=== PATIENT | male | born 1950 | race Caucasian/White ===

== ENCOUNTER 2020-10-05 07:43 | Outpatient (REF) | payer MEDICARE, SELFPAY ==
[2020-10-05 10:19] LABS: MANUAL DIFF FLAG NO
[2020-10-05 10:23] LABS: Basophils Absolute Auto 0.1 X10*3/uL (0.0-0.2); Basophils Percent Auto 1.1 % (0-2); Eosinophils Absolute Auto 0.2 X10*3/uL (0.0-0.4); Eosinophils Percent Auto 3.4 % (0-4); Hematocrit 42.7 % (42-52); Hemoglobin 14.4 g/dl (14.0-18.0); Imm Gran Abs Auto 0.01 X10*3/uL (0.00-0.03); Imm Gran Pct Auto 0.1 % (0.0-0.4); Lymphocytes Absolute Auto 2.6 X10*3/uL (1.2-4.9); Lymphocytes Percent Auto 37.2 % (20-40); Mean Corpuscular HGB Conc 33.7 g/dl (31.0-36.0); Mean Corpuscular Hemoglobin 30.2 pg (27.0-33.0); Mean Corpuscular Volume 89.5 fL (80-98); Monocytes Absolute Auto 0.8 X10*3/uL (0.1-1.2); Monocytes Percent Auto 11.6 % (2-11); Neutrophils Absolute Auto 3.2 X10*3/uL (2.0-8.3); Neutrophils Percent Auto 46.6 % (45-73); Platelet Count 282 X10*3/uL (160-400); Red Blood Count 4.77 X10*6/uL (4.60-5.80)
[2020-10-05 10:50] LABS: Alanine Aminotransferase 15 U/L (0-40); Albumin Level 3.8 g/dL (3.5-5.0); Alkaline Phosphatase 60 U/L (39-117); Amylase 56 U/L (28-100); Anion Gap 11 (12-20); Aspartate Amino Transferase 16 U/L (5-37); Bilirubin Total 0.5 mg/dL (0.0-1.0); Blood Urea Nitrogen 18 mg/dL (9-16); Calcium 8.8 mg/dL (8.4-10.2); Carbon Dioxide 31 mmol/L (22-29); Chloride 103 mmol/L (96-108); Estimated Glomerular Filt Rate > 60; Glucose Random 86 mg/dL (60-115); Lipase 16 U/L (8-78); Potassium 4.2 mmol/l (3.3-5.1); Sodium 141 mmol/L (135-145); Total Protein 6.8 g/dL (6.5-8.0)
[2020-10-05 11:12] LABS: TSH reflex Free T4 2.83 mIU/mL (0.32-4.0)
[2020-10-06 18:41] LABS: Immunoglobulin A 157 mg/dL (70-320)
[2020-10-07 23:47] LABS: Transglutaminase Ab IgG 1 U/mL; Transglutaminase IgA 1 U/mL
[2020-10-08 16:12] LABS: Gliadin Deamidated IgA Ab 2 Units; Gliadin Deamidated IgG Ab 2 Units
[2020-10-16 19:03] LABS: Endomysial IgA Antibody Negative (Negative)
== END 2020-10-05 07:44 | disposition home or self-care (01) ==
LOC: HO.10HDL 07:43
PROVIDERS: Visit Provider Internal Medicine
DX: R19.4 Change in bowel habit (principal); R14.3 Flatulence; R14.0 Abdominal distension (gaseous)
CPT/HCPCS: 36415; 80053; 82150; 82784; 83516; 83690; 84443; 85025; 86255; 86256

== ENCOUNTER 2020-10-30 12:38 | Outpatient (REF) | payer MEDICARE, SELFPAY ==
[2020-10-30 14:00] LABS: Blood Urea Nitrogen 18 mg/dL (9-16); Estimated Glomerular Filt Rate > 60
== END 2020-10-30 12:39 | disposition home or self-care (01) ==
LOC: HO.10HDL 12:38
PROVIDERS: Visit Provider Internal Medicine
DX: R19.4 Change in bowel habit (principal); R14.0 Abdominal distension (gaseous); R10.32 Left lower quadrant pain
CPT/HCPCS: 36415; 82565; 84520

== ENCOUNTER 2020-10-31 21:00 | Outpatient (REF) | payer MEDICARE, SELFPAY | END 2020-10-31 21:01 | disposition home or self-care (01) | LOC: HO.10HDL 21:00 | PROVIDERS: Visit Provider Internal Medicine | DX: R19.4 Change in bowel habit (principal); R14.0 Abdominal distension (gaseous); R10.32 Left lower quadrant pain | CPT/HCPCS: 36415; 87177; 87209; 87329 ==

== ENCOUNTER 2020-11-01 09:36 | Outpatient (REF) | payer MEDICARE, SELFPAY | END 2020-11-01 09:37 | disposition home or self-care (01) | LOC: HO.10HDL 09:36 | PROVIDERS: Visit Provider Internal Medicine | DX: Z13.89 Encounter for screening for other disorder (principal) ==

== ENCOUNTER 2020-11-08 10:08 | Outpatient (REF) | payer MEDICARE, SELFPAY ==
--- NOTE | ~2020-11-08 | CT_ITS ---
EXAMINATION: CT ABDOMEN AND PELVIS WITH CONTRAST CLINICAL INFORMATION: Abdominal pain, change in bowel habits. COMPARISON: 06/08/2013 CT scan of the pelvis, 05/17/2015 abdominal ultrasound. TECHNIQUE: Multidetector volumetric images were obtained from the superior aspect of the liver through the pubic symphysis following administration 85 mL of Omnipaque 350 intravenous contrast. Sagittal and coronal reformatted images were obtained on the technologist's workstation. Oral contrast: No This CT examination was performed using dose optimization techniques as appropriate, variously including the following: *Automated exposure control *Adjustment of mA and/or kV according to patient size (this includes techniques or standardized protocols for targeted exams where dose is matched to indication/reason for exam; i.e. extremities or head) *Use of iterative reconstruction technique DLP: 577 mGy-cm FINDINGS: LUNG BASES: The visualized lung bases are unremarkable. LIVER, GALLBLADDER, AND BILIARY TREE: Visualized portions unremarkable. PANCREAS: Unremarkable. SPLEEN: Unremarkable. ADRENAL GLANDS: Unremarkable. KIDNEYS AND URETERS: The kidneys are normal in size, shape, and attenuation. No hydronephrosis, hydroureter, or calculi seen. No perinephric stranding. BLADDER: Unremarkable. GASTROINTESTINAL TRACT: The stomach, small bowel and appendix are unremarkable. Mild diverticulosis is seen in the sigmoid colon without surrounding abnormality. ABDOMINAL WALL: Small fat-containing right inguinal hernia. LYMPH NODES: No lymphadenopathy. VASCULAR: Unremarkable. PELVIC VISCERA: Unremarkable. OSSEOUS STRUCTURES: Mild degenerative disc disease is seen in the visualized inferior thoracic spine. No suspicious abnormality. CT/CT abdomen pelvis w con IMPRESSION: 1. No acute intra-abdominal/pelvic abnormality. 2. Mild sigmoid diverticulosis without evidence for acute diverticulitis. 3. Small fat-containing right inguinal hernia without abnormality or significant change.
[2020-11-08] MEDS: iohexoL 350 MG/ML 100 ML INFUS..BTL IV (10:47)
== END 2020-11-08 10:09 | disposition home or self-care (01) ==
LOC: HO.CT 10:08
PROVIDERS: Visit Provider Internal Medicine
DX: R10.32 Left lower quadrant pain (principal); R19.4 Change in bowel habit
CPT/HCPCS: 74177; Q9967

== ENCOUNTER 2020-11-28 06:32 | Day surgery (SDC) | payer MEDICARE, SELFPAY ==
[2020-11-23 10:30] VITALS: BMI 31.5
--- NOTE | 2020-11-27 08:23 | HO.ANESPROP2 ---
Documented by User: Loretta Soria 11/27/20 08:23 HPI - Anesthesia Eval Consult details Narrative: 70yo M for Colonoscopy PMFSH Past Medical History Medical History Arthritis Elevated cholesterol GERD (gastroesophageal reflux disease) History of prostate cancer Surgical History Surgical History H/O colonoscopy History of esophagogastroduodenoscopy (EGD) Hx of left inguinal hernia repair Hx of radical prostatectomy Social History Social History Are you a primary laboratory animal care veterinarian to a significant other at home: No Do you presently have visiting nurse or other home services: No Smoking Status: Never smoker Use of substances other than those prescribed or required for medical reasons: No Have you been hit, kicked, punched, or otherwise hurt by someone within the past year? If so, by whom?: No Advance Directives Information Provided: No Recently lost weight without trying: No Meds Allergies Allergy/AdvReac Type Severity Reaction Status Date / Time prednisone [Prednisone] Allergy Mild HIVES Verified 11/23/20 10:34 Home Medications Medication Instructions Recorded Confirmed Last Taken Type albuterol sulfate 2 puff INHALATION QID PRN 11/23/20 11/23/20 11/21/20 History aspirin [Aspirin Low Dose] 81 mg PO DAILY 11/23/20 11/28/20 11/21/20 History pantoprazole 1 tab PO DAILY 11/23/20 11/28/20 11/28/20 05:30 History simvastatin 1 tab PO DAILY 11/23/20 11/23/20 Unknown History zolpidem 1 tab PO BEDTIME 11/23/20 11/23/20 Unknown History Exam Exam Date and Time: November 27, 2020 0823 Height,Weight and Vital Signs: Height 5 ft 10 in Weight 99.79 kg Assessment and Plan Assessment Anesthesia Assessment: Chart Reviewed Documented by User: Heaven Corrigan 11/28/20 07:27 [facility] Past Medical History Medical History Arthritis Elevated cholesterol GERD (gastroesophageal reflux disease) History of prostate cancer Surgical History Surgical History H/O colonoscopy History of esophagogastroduodenoscopy (EGD) Hx of left inguinal hernia repair Hx of radical prostatectomy Social History Social History Are you a primary laboratory animal care veterinarian to a significant other at home: No Do you presently have visiting nurse or other home services: No Smoking Status: Never smoker Use of substances other than those prescribed or required for medical reasons: No Have you been hit, kicked, punched, or otherwise hurt by someone within the past year? If so, by whom?: No Advance Directives Information Provided: No Recently lost weight without trying: No Meds Allergies Allergy/AdvReac Type Severity Reaction Status Date / Time prednisone [Prednisone] Allergy Mild HIVES Verified 11/23/20 10:34 Home Medications Medication Instructions Recorded Confirmed Last Taken Type albuterol sulfate 2 puff INHALATION QID PRN 11/23/20 11/23/20 11/21/20 History aspirin [Aspirin Low Dose] 81 mg PO DAILY 11/23/20 11/28/20 11/21/20 History pantoprazole 1 tab PO DAILY 11/23/20 11/28/20 11/28/20 05:30 History simvastatin 1 tab PO DAILY 11/23/20 11/23/20 Unknown History zolpidem 1 tab PO BEDTIME 11/23/20 11/23/20 Unknown History Exam Airway Mallampati Class: III TM Dist: >3cm Neck ROM: Full Loose/Missing/Broken Teeth: No Heart: RRR Lungs: CTA Assessment and Plan Assessment Anesthesia Assessment: Anesthesia Plan Discussed and Chart Reviewed Final Anesthetic Review NPO: Yes ASA Class: II Final Preanesthetic Review: Meds/Allgs Chart Reviewed, Consent Obtained/Reviewed and Anes Risks/Benef Reviewed Patient Risk: Low Procedure Risk: Low Anesthetic Plan Anesthetic Plan: MAC:
[2020-11-28 06:56] VITALS: BP 137/90; PULSE 78; RESP 16; TEMP 36.2; O2SAT 99
[2020-11-28] MEDS: Lactated Ringers 1,000 ML 100 ML IVCONT (07:00)
[2020-11-28 08:31] VITALS: BP 139/82; PULSE 63; RESP 16; TEMP 36.2; O2SAT 98
--- NOTE | 2020-11-28 08:37 | PM.OP ---
Brief Operative Note Date of Service: 11/28/20 Pre-op diagnosis: Screening, Change in bowel habits Post-op diagnosis: other (R/O microscopic colitis, Diverticulosis) Procedure: Colonoscopy to the cecum with biopsies Surgeon: Imtiaz Lucas Anesthesia: MAC Estimated blood loss (mL): 3.0 Pathology: other (A. Ascending colon B. Descending colon) Condition: stable Disposition: PACU
[2020-11-28 08:46] VITALS: BP 131/87; PULSE 62; RESP 17; TEMP 36.2; O2SAT 99
--- NOTE | 2020-11-28 09:21 | OP_ITS ---
SURGEON: Imtiaz Lucas MD INDICATIONS: The patient presents for evaluation of colorectal cancer screening, personal history of a malignant colon polyp, and change in bowel habits. Full consent has haven obtained from him for this, including risks of bleeding and perforation. PREOPERATIVE DIAGNOSIS: POSTOPERATIVE DIAGNOSIS: PROCEDURE PERFORMED: Colonoscopy to the cecum with biopsies. ESTIMATED BLOOD LOSS: COMPLICATIONS: ANESTHESIA: Monitored anesthesia care. ASSISTANTS: SPECIMENS: PREOPERATIVE DIAGNOSES: Colorectal cancer screening, personal history of malignant colon polyp, and change in bowel habits. POSTOPERATIVE DIAGNOSES: Colorectal cancer screening, personal history of malignant colon polyp, change in bowel habits, diverticulosis, rule out microscopic colitis, and internal hemorrhoids. DESCRIPTION OF PROCEDURE: The patient was placed in the left lateral decubitus position. The digital rectal exam revealed no abnormalities. The Olympus video pediatric colonoscope was entered into the rectum and advanced easily to the cecum with the assistance of abdominal wall pressure. Once in the cecum, I did identify normal-appearing cecal pouch with appendiceal orifice and a normal-appearing ileocecal valve. There was transillumination of light deep in the right lower quadrant. The entire cecum was well visualized and appeared normal. The scope was then slowly withdrawn assessing all mucosal surfaces carefully. Preparation was excellent. I did not visualize any sign of polyps, colitis, nor angiodysplasia. Random biopsies were obtained in the ascending and descending colon to rule out microscopic colitis. There was a [id number] amount of sigmoid diverticulosis. In the rectum, scope was retroflexed visualizing internal hemorrhoids, but no other pathology. The rectal mucosa appeared normal. The scope was straightened out and withdrawn from the patient. He has tolerated the procedure well and was returned to the recovery area in stable condition. IMPRESSION: 1. Diverticulosis. 2. Internal hemorrhoids. 3. Rule out microscopic colitis. PLAN: The results of biopsy will be checked. I would recommend a repeat colonoscopy in 5 years for further screening and surveillance. He will see me in 2 to 3 months for followup. He has been tried on fiber supplement and antispasmodics as well as a lactose-free diet, in regard to the change in his bowel habits. We shall reassess this when I see him in followup. The recent CAT scan was also nonrevealing. This has been discussed with his . MD PRISCILA Camilo/JAMES / [id number]
== END 2020-11-28 09:10 | disposition home or self-care (01) ==
PROVIDERS: PCP Internal Medicine; Visit Provider Internal Medicine
PROC: 0DJD8ZZ Inspection of Lower Intestinal Tract, Via Natural or Artificial Opening Endoscopic (ICD-10-PCS; CPT 45378; principal; 2020-11-28 07:30)
DX: R10.32 Left lower quadrant pain (principal); R19.4 Change in bowel habit; R14.0 Abdominal distension (gaseous); Z86.010 Personal history of colon polyps; Z85.038 Personal history of other malignant neoplasm of large intestine; K57.30 Diverticulosis of large intestine without perforation or abscess without bleeding; K64.8 Other hemorrhoids; K21.9 Gastro-esophageal reflux disease without esophagitis; Z85.46 Personal history of malignant neoplasm of prostate; Z79.899 Other long term (current) drug therapy; Z88.8 Allergy status to other drugs, medicaments and biological substances
CPT/HCPCS: 45380; 88305

== ENCOUNTER 2021-04-29 07:27 | Outpatient (REF) | payer MEDICARE, SELFPAY ==
[2021-04-29 10:24] LABS: MANUAL DIFF FLAG NO
[2021-04-29 10:32] LABS: Basophils Absolute Auto 0.1 X10*3/uL (0.0-0.2); Basophils Percent Auto 0.8 % (0-2); Eosinophils Absolute Auto 0.3 X10*3/uL (0.0-0.4); Eosinophils Percent Auto 4.2 % (0-4); Hemoglobin 14.6 g/dl (14.0-18.0); Imm Gran Abs Auto 0.01 X10*3/uL (0.00-0.03); Imm Gran Pct Auto 0.2 % (0.0-0.4); Lymphocytes Absolute Auto 2.4 X10*3/uL (1.2-4.9); Lymphocytes Percent Auto 36.2 % (20-40); Mean Corpuscular Hemoglobin 30.4 pg (27.0-33.0); Mean Corpuscular Volume 89.6 fL (80-98); Mean Platelet Volume 10.9 fL (9.4-12.4); Monocytes Absolute Auto 0.8 X10*3/uL (0.1-1.2); Monocytes Percent Auto 12.2 % (2-11); Neutrophils Absolute Auto 3.1 X10*3/uL (2.0-8.3); Neutrophils Percent Auto 46.4 % (45-73); Platelet Count 285 X10*3/uL (160-400); Red Cell Distribution Width 12.6 % (11.0-16.0); White Blood Count 6.6 X10*3/uL (4.8-10.8)
[2021-04-29 11:19] LABS: Alanine Aminotransferase 18 U/L (0-40); Alkaline Phosphatase 60 U/L (39-117); Anion Gap 10 (12-20); Aspartate Amino Transferase 22 U/L (5-37); Bilirubin Total 0.4 mg/dL (0.0-1.0); Blood Urea Nitrogen 17 mg/dL (9-16); Carbon Dioxide 29 mmol/L (22-29); Chloride 106 mmol/L (96-108); Cholesterol 159 mg/dL; Estimated Glomerular Filt Rate > 60; Glucose Fasting 100 mg/dL (60-99); HDL Cholesterol 51 mg/dL; LDL Cholesterol Calculated 95 mg/dl; Potassium 4.1 mmol/L (3.3-5.1); Sodium 141 mmol/L (135-145); Total Protein 6.9 g/dL (6.5-8.0); Triglycerides 67 mg/dL
[2021-04-29 11:41] LABS: Prostate Specific Antigen < 0.05 ng/mL (<0.05-4.0)
== END 2021-04-29 07:28 | disposition home or self-care (01) ==
LOC: HO.WFDLDS 07:27
PROVIDERS: Visit Provider Internal Medicine
DX: Z12.5 Encounter for screening for malignant neoplasm of prostate (principal); E78.00 Pure hypercholesterolemia, unspecified; R35.1 Nocturia; R00.2 Palpitations
CPT/HCPCS: 36415; 80053; 80061; 84153; 84439; 85025

== ENCOUNTER → 2021-05-08 13:25 | Outpatient (REF) | payer MEDICARE, SELFPAY ==
--- NOTE | 2021-05-08 13:31 | ECG_ITS ---
Hook-up date: 2021-05-08 13:37:00 Duration: 42:17:00 Test Indications: PALPITATIONS Medications: [id number] QRS complexes 1 Ventricular ectopics which represent <1 % of total QRS comp. 80 Supraventricular ectopics which represent <1 % of total QRS comp. * Paced QRS complexs which represent % of total QRS comp. VENTRICULAR ECTOPY 1 Isolated 0 Bigeminal Cycles 0 Couplets 0 Runs 0 Beats in Runs * Beats LONGEST at * BPM at :: -- * Beats FASTEST at * BPM at :: -- SUPRAVENTRICULAR ECTOPY 50 Isolated 1 Couplets 5 Runs 28 Beats in Runs 10 Beats LONGEST at 136 BPM at 19:59:35 2021-05-08 3 Beats FASTEST at 164 BPM at 19:16:57 2021-05-08 HEART RATES 52 MIN at 00:36:28 2021-05-09 70 AVG 128 MAX at 15:05:08 2021-05-08 LONGEST RR 1.2240 secs at 01:40:16 2021-05-09 S-T LEVELS Channel 1 - 128 mm at 13:37:00 2021-05-08 - 128 mm at 13:37:00 2021-05-08 Channel 2 - 128 mm at 13:37:00 2021-05-08 - 128 mm at 13:37:00 2021-05-08 Channel 3 - 128 mm at 03:25:61 -- - 128 mm at 03:25:61 Basic rhythm Normal sinus rhythm Baseline BBB No long pause or profound bradycardia Rare Premature atrial complexes One 10 beat run of SVE c/w PAT at 136 bpm Patient reported symptoms of palpitations correlated with NSR Referred By: Jose Craven Overread By: FARHAN HAQ MD
== END ==
LOC: HO.CARD 13:25
PROVIDERS: PCP Internal Medicine; Visit Provider Internal Medicine
DX: I45.10 Unspecified right bundle-branch block (principal); R00.2 Palpitations
CPT/HCPCS: 93225; 93226

== ENCOUNTER → 2021-06-06 10:24 | Outpatient (REF) | payer MEDICARE, SELFPAY ==
--- NOTE | 2021-06-06 10:28 | CA_ITS ---
Transthoracic Echocardiogram Patient (Last, First, Middle): Pernell Arriaga J Gender: Male Date of : 1950 Age: 70 Procedure Date: 06/06/2021 Procedure Type: Transthoracic Echocardiogram Location: OP Height: 177.8 cm Weight: 96.16 kg BSA: 2.14 m2 Heart Rate: bpm BP: 125 / 80 mmHg Black Leather Trimmer: YR/NAM Referring MD: Jose Craven MD Manager Investment Banking: Bayron Garcias MD Symptoms: UNSPECIFIED RIGHT BBB,PALPITATIONS, Study Quality: Fair ECG Rhythm: Sinus Conclusions: - 1. Normal LV systolic function with impaired relaxation filling pattern 2. Mild calcification of aortic valve, normal cardiac valvular Doppler is 3. No gross pericardial effusion Findings Left Ventricle Normal left ventricular size, thickness, and systolic function. The visually estimated ejection fraction is between 60-65%. Regional wall motion abnormalities can not be excluded due to suboptimal endocardial definition. Spectral Doppler is indicative of an impaired relaxation filling pattern. Right Ventricle Normal right ventricular cavity size and systolic function. Atria The left atrium is likely dilated. There is no evidence of interatrial shunt. The right atrium is normal in size. Aortic Valve There is mild calcification of the aortic valve. There is no aortic valve stenosis. There is no aortic valve regurgitation. Mitral Valve There is mild anterior mitral leaflet thickening. There is trace mitral valve regurgitation. There is no mitral valve stenosis. Pulmonic Valve The pulmonic valve was not well visualized. Tricuspid Valve Likely normal tricuspid valve structure and function. Tricuspid regurgitation envelope is inadequate for calculation of right ventricular systolic pressure. Great Vessels All visible segments of the aorta are normal in size. The pulmonary artery was not well visualized. Small plaque is seen in the sino tubular ridge. Venous The inferior vena cava is normal in size and collapses greater than 50% with inspiration. Pericardium/Pleural There is no evidence of pericardial effusion. Prior Study Comparison No previous study in the last 5 years for comparison Measurements 2D Linear Measurements IVSd: 0.92 0.6-0.9/0.6-1.0 cm LVIDd: 4.32 3.9-5.3/4.2-5.9 cm LVIDd Index: 2.02 2.4-3.2/2.2-3.1 cm/m2 LVIDs: 2.73 2.0-3.6 cm LVPWd: 0.98 0.7-1.1 cm Ao Root: 3.80 2.1-3.5 cm LA Diam: 3.80 2.7-3.8/3.0-4.0 cm LAIDs Index: 1.78 1.5-2.3 cm/m2 LV Mass: 166.42 67-162/88-224 g LV Mass Index: 77.77 43-95/49-115 g/m2 LVOT Diam: 2.20 3.0+(-)1.3 cm 2D Systolic Function EF 4C: 58.50 >55% EF 2C: 58.50 >55% EF BiP: 58.50 >55% Mitral Valve MV Pk E: 0.85 MV PK A: 0.78 MV Decel Time: 176.00 E/A: 1.10 E'Lateral: 8.05 E'Medial: 8.27 E/E' Med: 10.30 E/E' Lat: 10.50 PHT: 52.00 MVA PHT: 4.23 Decel [place]: 4.82 Aortic Valve AoV Pk Maikol: 1.55 AoV Mn Maikol: 1.12 AoV VTI: 0.33 AoV Pk Grad: 10.00 Aov Mn Grad: 6.00 GEOVANNA Cont.VTI: 3.21 LVOT LVOT Pk Maikol: 1.15 LVOT Mn Maikol: 0.79 LVOT VTI: 0.28 LVOT Pk Grad: 5.00 LVOT Mn Grad: 3.00 LVOT Diam: 2.20 LVOT Area: 3.80 Diastolic Function MV Pk E: 0.85 MV Pk A: 0.78 E/A: 1.10 E'Medial: 8.27 E/E' Med: 10.30 E' Laterial: 8.05 E/E' Lat: 10.50 Right Ventricle TAPSE (mm): 2.90 TVS' Maikol: 10.00 Great Vessels Aorta Ao Root-2D: 3.80 2.0-3.7 cm Ao Asc: 3.00 2.1-3.4 cm Ao Arch: 2.90 Updated in Other Vendor System with Status of Final Bayron Garcias MD electronically signed on 06/06/2021 12:39:47 PM with status of Final
== END ==
LOC: HO.CARD 10:24
PROVIDERS: PCP Internal Medicine; Visit Provider Internal Medicine
DX: I45.10 Unspecified right bundle-branch block (principal); R00.2 Palpitations
CPT/HCPCS: 93306

== ENCOUNTER 2022-04-22 08:56 | Outpatient (REF) | payer MEDICARE, SELFPAY ==
[2022-04-22 11:11] LABS: MANUAL DIFF FLAG NO
[2022-04-22 11:45] LABS: Basophils Absolute Auto 0.1 X10*3/uL (0.0-0.2); Eosinophils Absolute Auto 0.2 X10*3/uL (0.0-0.4); Eosinophils Percent Auto 4.2 % (0-4); Hematocrit 42.4 % (42.0-52.0); Hemoglobin 14.3 g/dl (14.0-18.0); Imm Gran Abs Auto 0.02 X10*3/uL (0.00-0.03); Imm Gran Pct Auto 0.3 % (0.0-0.4); Lymphocytes Absolute Auto 1.7 X10*3/uL (1.2-4.9); Lymphocytes Percent Auto 29.5 % (20-40); Mean Corpuscular HGB Conc 33.7 g/dl (31.0-36.0); Mean Corpuscular Hemoglobin 29.9 pg (27.0-33.0); Mean Corpuscular Volume 88.7 fL (80.0-98.0); Monocytes Absolute Auto 0.7 X10*3/uL (0.1-1.2); Monocytes Percent Auto 11.4 % (2-11); Neutrophils Absolute Auto 3.1 x10*3/uL (2.0-8.3); Neutrophils Percent Auto 53.6 % (45-73); Platelet Count 267 X10*3/uL (160-400); Red Blood Count 4.78 X10*6/uL (4.60-5.80); Red Cell Distribution Width 12.2 % (11.0-16.0); White Blood Count 5.7 X10*3/uL (4.8-10.8)
[2022-04-22 12:00] LABS: Free T4 (Free Thyroxine) 0.93 ng/dL (0.71-1.85); Thyroid Stimulating Hormone 2.36 uIU/mL (0.32-4.0)
[2022-04-22 12:02] LABS: Alanine Aminotransferase 19 U/L (0-40); Albumin Level 3.9 g/dL (3.5-5.0); Alkaline Phosphatase 60 U/L (39-117); Anion Gap 12 (12-20); Aspartate Amino Transferase 22 U/L (5-37); Bilirubin Total 0.8 mg/dL (0.0-1.0); Blood Urea Nitrogen 17 mg/dL (9-16); Calcium 8.8 mg/dL (8.4-10.2); Carbon Dioxide 27 mmol/L (22-29); Chloride 105 mmol/L (96-108); Cholesterol 170 mg/dL; Estimated Glomerular Filt Rate > 60; Glucose Fasting 95 mg/dL (60-99); HDL Cholesterol 53 mg/dL; LDL Cholesterol Calculated 102 mg/dl; Magnesium 2.2 mg/dL (1.6-2.6); Sodium 140 mmol/L (135-145); Total Protein 6.9 g/dL (6.5-8.0); Triglycerides 75 mg/dL
== END 2022-04-22 08:57 | disposition home or self-care (01) ==
LOC: HO.WFDLDS 08:56
PROVIDERS: Visit Provider Internal Medicine
DX: R00.2 Palpitations (principal); K21.9 Gastro-esophageal reflux disease without esophagitis; E78.00 Pure hypercholesterolemia, unspecified
CPT/HCPCS: 36415; 80053; 80061; 83735; 84439; 84443; 85025

== ENCOUNTER → 2022-10-09 10:57 | Outpatient (REF) | payer MEDICARE, SELFPAY ==
--- NOTE | 2022-10-09 11:00 | HM_ITS ---
Conclusion: 1. Patient was monitored for total period of 2 days and 23 hours 2. Baseline was normal sinus rhythm with average heart of 70 beats per minute 3. No significant pauses noted 4. Rare PACs noted 5. Two episodes of SVT with the fastest at 150 beats per minute and longest at 11 beats per minute 6. One episode of fluttering in the chest correlated with PSVT MTDD
== END ==
LOC: HO.CARD 10:57
PROVIDERS: PCP Internal Medicine; Visit Provider Internal Medicine
DX: R00.2 Palpitations (principal); I45.10 Unspecified right bundle-branch block
CPT/HCPCS: 93242

== ENCOUNTER → 2022-12-01 08:23 | Outpatient (BNVA) | payer MEDICARE, SELFPAY | PROVIDERS: PCP Internal Medicine; Visit Provider Internal Medicine Cardiovascular Disease | DX: I47.1 Supraventricular tachycardia (principal); R00.1 Bradycardia, unspecified | CPT/HCPCS: 93005; 99202 ==

== ENCOUNTER → 2022-12-04 12:44 | Outpatient (REF) | payer MEDICARE, SELFPAY ==
--- NOTE | 2022-12-04 12:47 | CA_ITS ---
Transthoracic Echocardiogram Patient (Last, First, Middle): Pernell Arriaga J Gender: Male Date of : 1950 Age: 72 Procedure Date: 12/04/2022 Procedure Type: Transthoracic Echocardiogram Location: OP Height: 177.8 cm Weight: 97.52 kg BSA: 2.15 m2 Heart Rate: bpm BP: 130 / 90 mmHg Tax Intern: TO Referring MD: Bayron Garcias MD Nursing Scheduler: Bayron Garcias MD Symptoms: I47.1 - Supraventricular tachycardia Study Quality: Fair/Contrast ECG Rhythm: Sinus Conclusions: - 1. Normal LV systolic and diastolic function 2. Normal cardiac valvular Doppler 3. No gross pericardial effusion Findings Procedure Information Contrast agent, definity, is being given per protocol without apparent complications. Left Ventricle Normal left ventricular size, thickness, and systolic function. The visually estimated ejection fraction is between 55-60%. Spectral Doppler is indicative of a normal filling pattern. Right Ventricle Normal right ventricular cavity size and systolic function. Atria Both atria are normal in size. Interatrial shunt cannot be excluded. Aortic Valve There is mild calcification of the aortic valve. There is no aortic valve stenosis. There is no aortic valve regurgitation. Mitral Valve Normal mitral valve structure and function. There is trace mitral valve regurgitation. There is no mitral valve stenosis. Pulmonic Valve The pulmonic valve was not well visualized. Tricuspid Valve Likely normal tricuspid valve structure and function. Tricuspid regurgitation envelope is inadequate for calculation of right ventricular systolic pressure. Normal right atrial pressure. Great Vessels All visible segments of the aorta are normal in size. The pulmonary artery was not well visualized. Venous The inferior vena cava is normal in size and collapses greater than 50% with inspiration. Pericardium/Pleural There is no evidence of pericardial effusion. Prior Study Comparison No significant change compared to prior study dated: 06/06/2021. Measurements 2D Linear Measurements IVSd: 0.91 0.6-0.9/0.6-1.0 cm LVIDd: 4.99 3.9-5.3/4.2-5.9 cm LVIDd Index: 2.32 2.4-3.2/2.2-3.1 cm/m2 LVIDs: 2.81 2.0-3.6 cm LVPWd: 0.78 0.7-1.1 cm LA Diam: 4.20 2.7-3.8/3.0-4.0 cm LAIDs Index: 1.95 1.5-2.3 cm/m2 LV Mass: 181.34 67-162/88-224 g LV Mass Index: 84.34 43-95/49-115 g/m2 LVOT Diam: 2.20 3.0+(-)1.3 cm 2D Systolic Function EF 4C: 59.70 >55% EF 2C: 55.90 >55% EF BiP: 57.80 >55% Mitral Valve MV Pk E: 0.84 MV PK A: 0.70 MV Decel Time: 244.00 E/A: 1.20 E'Lateral: 8.27 E'Medial: 5.87 E/E' Med: 14.40 E/E' Lat: 10.20 PHT: 72.00 MVA PHT: 3.06 Decel [place]: 3.45 Aortic Valve AoV Pk Maikol: 1.51 AoV Mn Maikol: 1.10 AoV VTI: 0.38 AoV Pk Grad: 9.00 Aov Mn Grad: 5.00 GEOVANNA Cont.VTI: 2.09 LVOT LVOT Pk Maikol: 0.91 LVOT Mn Maikol: 0.59 LVOT VTI: 0.21 LVOT Pk Grad: 3.00 LVOT Mn Grad: 2.00 LVOT Diam: 2.20 LVOT Area: 3.80 Diastolic Function MV Pk E: 0.84 MV Pk A: 0.70 E/A: 1.20 E'Medial: 5.87 E/E' Med: 14.40 E' Laterial: 8.27 E/E' Lat: 10.20 Right Ventricle TAPSE (mm): 22.90 TVS' [place]: 12.60 Great Vessels Aorta Sinus of Valsalva: 3.43 2.0-3.5 cm Ao Asc: 3.00 2.1-3.4 cm Updated in Other Vendor System with Status of Final Bayron Garcias MD electronically signed on 12/05/2022 9:51:46 AM with status of Final
== END ==
LOC: HO.CARD 12:44
PROVIDERS: PCP Internal Medicine; Visit Provider Internal Medicine Cardiovascular Disease
DX: I47.1 Supraventricular tachycardia (principal)
CPT/HCPCS: 93306; Q9957

== ENCOUNTER → 2022-12-10 13:54 | Outpatient (REF) | payer MEDICARE, SELFPAY ==
--- NOTE | 2022-12-10 13:56 | HM_ITS ---
Cardiac event monitor Indication: Suspected bradycardia with underlying right bundle-branch block with history of SVT Technique: Patient was hooked up for cardiac event monitor on 12/10/2022 for total of 30 days although the monitoring was cut short due to skin reaction. Compliance rate was 84.5%. Findings: Baseline was normal sinus rhythm with predominant heart rate between 60 and 100 beats per minute. Underlying bundle-branch block was noted. Rare PACs noted with total burden less than 1%. Few episodes of SVT noted longest lasting about 7 beats. No episodes of AV block or pauses noted. Patient 1 reported symptoms of palpitations/skipped heartbeat that correlated with 6 beat run of SVT. Conclusion: 1. Baseline was normal sinus rhythm with no pauses or AV block with baseline bundle-branch block 2. Rare PACs and few episodes of short runs of SVT, longest lasting 7 beats 3. One patient reported symptom palpitation correlated with 6 beat run of SVT MTDD
== END ==
LOC: HO.CARD 13:54
PROVIDERS: PCP Internal Medicine; Visit Provider Internal Medicine Cardiovascular Disease
DX: R00.1 Bradycardia, unspecified (principal)
CPT/HCPCS: 93270

== ENCOUNTER → 2023-01-12 09:39 | Outpatient (BNVA) | payer MEDICARE, SELFPAY | PROVIDERS: PCP Internal Medicine; Referring Provider Internal Medicine; Visit Provider Internal Medicine Cardiovascular Disease | DX: I47.1 Supraventricular tachycardia (principal) | CPT/HCPCS: 99212 ==

== ENCOUNTER 2023-05-15 07:37 | Outpatient (REF) | payer MEDICARE, SELFPAY ==
[2023-05-15 11:16] LABS: MANUAL DIFF FLAG NO
[2023-05-15 11:32] LABS: Basophils Absolute Auto 0.1 X10*3/uL (0.0-0.2); Basophils Percent Auto 0.4 % (0-2); Eosinophils Absolute Auto 0.1 X10*3/uL (0.0-0.4); Eosinophils Percent Auto 0.5 % (0-4); Hematocrit 41.2 % (42.0-52.0); Imm Gran Abs Auto 0.06 X10*3/uL (0.00-0.03); Imm Gran Pct Auto 0.5 % (0.0-0.4); Lymphocytes Percent Auto 26.1 % (20-40); Mean Corpuscular Hemoglobin 30.2 pg (27.0-33.0); Mean Platelet Volume 10.6 fL (9.4-12.4); Monocytes Absolute Auto 0.9 X10*3/uL (0.1-1.2); Monocytes Percent Auto 7.9 % (2-11); Neutrophils Absolute Auto 7.4 x10*3/uL (2.0-8.3); Neutrophils Percent Auto 64.6 % (45-73); Platelet Count 311 X10*3/uL (160-400); Red Blood Count 4.63 X10*6/uL (4.60-5.80); Red Cell Distribution Width 13.2 % (11.0-16.0); White Blood Count 11.5 X10*3/uL (4.8-10.8)
[2023-05-15 12:16] LABS: Appearance Urine Clear; Color Urine Yellow; Glucose Urine UA Negative (Negative); Leukocyte Esterase Urine Negative (Negative); Nitrite Urine Negative (Negative); PH 6.5 (5.0-9.0); Specific Gravity - Urine 1.025 (1.005-1.025); Urine Blood Negative (Negative); Urine Ketones Negative (Negative); Urine Protein Negative (Neg-Trace)
[2023-05-15 12:53] LABS: Alanine Aminotransferase 19 U/L (0-40); Albumin Level 3.5 g/dL (3.5-5.0); Alkaline Phosphatase 44 U/L (39-117); Anion Gap 12 (12-20); Aspartate Amino Transferase 18 U/L (5-37); Bilirubin Total 0.8 mg/dL (0.0-1.0); Blood Urea Nitrogen 21 mg/dL (9-16); Carbon Dioxide 25 mmol/L (22-29); Chloride 106 mmol/L (96-108); Cholesterol 174 mg/dL (<200); Estimated Glomerular Filt Rate > 60; Glucose Random 82 mg/dL (60-115); HDL Cholesterol 60 mg/dL (>40); LDL Cholesterol Calculated 100 mg/dL (<100); Potassium 3.5 mmol/L (3.3-5.1); Sodium 139 mmol/L (135-145); Total Protein 6.5 g/dL (6.5-8.0); Triglycerides 73 mg/dL (<150)
== END 2023-05-15 07:38 | disposition home or self-care (01) ==
LOC: HO.WFDLDS 07:37
PROVIDERS: Visit Provider Internal Medicine
DX: E78.00 Pure hypercholesterolemia, unspecified (principal); K21.9 Gastro-esophageal reflux disease without esophagitis; Z86.010 Personal history of colon polyps
CPT/HCPCS: 36415; 80053; 80061; 81003; 85025

== ENCOUNTER 2023-05-26 07:38 | Outpatient (REF) | payer MEDICARE, SELFPAY ==
--- NOTE | ~2023-05-26 | CT_ITS ---
EXAMINATION: CT MAXILLOFACIAL WITHOUT CONTRAST CLINICAL INFORMATION: Auditory tube dysfunction. Rhinitis. COMPARISON: None. TECHNIQUE: Multidetector helical imaging was performed in the axial plane with generation of coronal and sagittal reformatted images. This CT examination was performed using dose optimization techniques as appropriate, variously including the following: *Automated exposure control *Adjustment of mA and/or kV according to patient size (this includes techniques or standardized protocols for targeted exams where dose is matched to indication/reason for exam; i.e. extremities or head) *Use of iterative reconstruction technique DLP: 109 mGy-cm. FINDINGS: There is mild circumferential mucosal thickening in the bilateral frontal sinuses and opacification of the right frontoethmoidal recess. There is mild to moderate bilateral ethmoid mucosal thickening. There is a single central sphenoid sinus which demonstrates lobular mucosal thickening circumferentially. The dominant left-sided sphenoid ostium is opacified. There is trace mucosal thickening along the bilateral maxillary sinus floors. Mucosal thickening narrows the right ethmoidal infundibulum. There is rightward deviation of the nasal septum with a small leftward projecting septal spur. The ethmoid roofs are symmetric. The lamina papyracea are intact. The carotid impressions are covered with bone. No maxillary periapical disease is seen. The mastoid air cells and visualized middle ear cavities are well aerated. The orbits are normal. The TMJs are unremarkable. The imaged portions of the brain demonstrate no acute abnormality. CT/CT sinus wo IV con IMPRESSION: Mild circumferential mucosal thickening in the bilateral frontal sinuses and opacification of the right frontoethmoidal recess. Mild to moderate bilateral ethmoid mucosal thickening. Single central sphenoid sinus which demonstrates lobular mucosal thickening. Trace mucosal thickening along the maxillary sinus floors. Rightward deviation of the nasal septum with small leftward projecting septal spur.
== END 2023-05-26 07:39 | disposition home or self-care (01) ==
LOC: HO.CT 07:38
PROVIDERS: PCP Internal Medicine; Visit Provider Internal Medicine
DX: H69.92 Unspecified Eustachian tube disorder, left ear (principal); J31.0 Chronic rhinitis
CPT/HCPCS: 70486

== ENCOUNTER 2023-12-29 09:10 | Outpatient (AMB) | payer MEDICARE, SELFPAY ==
--- NOTE | 2023-12-29 09:25 | MHC.OFFVIS ---
Intake Vital Signs 12/29/23 09:26 Height 5 ft 10 in Weight 147 lb 11.355 oz BMI 21.2 BP 144/84 H Blood Pressure Location Lt brachial Position Sitting Pulse 67 Intake Visit Reasons: 1 year follow up Intake Note: 1 year follow-up with ekg c/o bp being elevated Photocomposition Keyboard Operator Required: No Allergies prednisone [Prednisone] Allergy (Mild, Verified 11/23/20 10:34) HIVES Medication List - Last Reconciled 12/29/23 by Bayron Garcias MD albuterol sulfate 90 mcg/actuation 2 puffs inhalation QID PRN pantoprazole 40 mg PO DAILY simvastatin 20 mg PO DAILY zolpidem 10 mg PO BEDTIME HPI HPI Comments History of Present Illness Details Don comes for follow-up. He has been recently noticing that his blood pressures been elevated. He feels heaviness in his head in his upper body and knows that his blood pressure is high. Occasionally at that time blood pressures gone up to systolic 160 and diastolic 100. This is only happen recently. Thinks this might be due to some increased personal stress. However he does not have any exertional chest pain or shortness of breath when he walks the dog otherwise. Denies any orthopnea, PND, leg edema. He does have occasional symptoms of palpitation however they are not life-limiting, not prolonged and infrequent. [facility] Medical History HTN (hypertension) Arthritis History of prostate cancer GERD (gastroesophageal reflux disease) Elevated cholesterol Surgical History Hx of left inguinal hernia repair History of esophagogastroduodenoscopy (EGD) H/O colonoscopy Hx of radical prostatectomy Family History Father CAD (coronary artery disease) Mother No problems noted. Social History Are you a primary health care recruiter to a significant other at home: No Do you presently have visiting nurse or other home services: No Patient Tobacco Use Status: Never used Tobacco Review of Systems Const Denies chills, Denies fatigue, Denies fever(s), Denies frequent falls, Denies weakness, Denies weight gain and Denies weight loss ENT Denies dizziness Card Denies chest pain, Denies leg edema, Denies lightheadedness, Denies palpitations, Denies dyspnea, Denies dyspnea on exertion, Denies orthopnea and Denies other (loss of consciousness) Resp Denies cough, Denies dyspnea and Denies dyspnea on exertion GI Denies hematochezia and Denies change in stool character Musc Denies abnormal gait, Denies muscle weakness, Denies numbness, Denies radiating pain into limb and Denies tingling Neuro Denies Abnormal speech present, Denies abnormal gait, Denies dizziness, Denies frequent falls, Denies numbness, Denies tingling and Denies weakness Endo Denies fatigue and Denies palpitations Physical Exam Vital Signs: Last Vital Signs Pulse 67 12/29/23 09:26 BP 144/84 H 12/29/23 09:26 BMI result Body Mass Index 21.2 Const General: cooperative, comfortable, no acute distress, alert, awake and Physically active Nutritional Appearance: average body habitus and well nourished Orientation/consciousness: patient oriented x3 Limitations: no limitations Neck Neck: Yes trachea midline, Yes supple and Yes no JVD Resp Effort & Inspection: normal respiratory effort Auscultation: clear to auscultation bilaterally Cardio Jugular venous distension: no JVD Palpation: normal PMI Rate: regular rate Rhythm: regular rhythm Heart sounds: S1 normal heart sound present, S2 normal heart sound present, no click, no gallops and Murmur heart sound present systolic early Neuro General: patient oriented x3 and no focal motor deficits Speech: No Abnormal speech present Extrem General: Yes no clubbing, cyanosis or edema Office Procedures EKG Details: EKG shows sinus rhythm with first-degree AV block with right bundle-branch block, unchanged from before [id number], Complete Assessment & Plan Assessment & Plan (1) SVT (supraventricular tachycardia): Code(s): I47.1 - Supraventricular tachycardia Plan: Supraventricular tachycardia with occasional palpitation which are not life-limiting. We discussed about vagal maneuvers. Advised to call me with any prolonged symptoms. Stress mitigation strategies pursued. Avoid stimulants such as caffeine and alcohol. Will continue to manage without any pharmacotherapy unless symptoms become life-limiting. (2) HTN (hypertension): Code(s): I10 - Essential (primary) hypertension Plan: Recent onset hypertension. Patient is symptomatic with it. He thinks this is related to increased personal stress. Will start him on amlodipine 2.5 mg daily. Mechanism of action was discussed. Possible side effects were discussed. Given interaction with simvastatin will switch him to atorvastatin 10 mg daily. Target goal LDL less than 100 mg/dL being pursue through your office. Advised to monitor blood pressure with the next month and call me with numbers. Target goal blood pressure less than systolic 130. Will gradually uptitrate amlodipine as needed. Will follow up in the clinic in 1 year's time, sooner p.r.n.. Thank you for allowing me to partake in his care Medications: New amlodipine 2.5 mg PO DAILY 30 tabs 11RF atorvastatin 10 mg PO DAILY 30 tabs 11RF Coding Level of Care Code Est Pt Level 4 (17551) Diagnoses SVT (supraventricular tachycardia) I47.1 HTN (hypertension) I10 CPT Codes EKG - CPT: [id number], Complete ([id number])
[2023-12-29 09:26] VITALS: BP 144/84; PULSE 67; BMI 21.2
== END 2023-12-29 09:53 | disposition home or self-care (01) ==
PROVIDERS: Visit Provider Internal Medicine Cardiovascular Disease
DX: I47.10 Supraventricular tachycardia, unspecified (principal); I10 Essential (primary) hypertension
CPT/HCPCS: 93010; 99214

== ENCOUNTER → 2023-12-29 09:10 | Outpatient (BNVA) | payer MEDICARE, SELFPAY | PROVIDERS: Visit Provider Internal Medicine Cardiovascular Disease | DX: I47.10 Supraventricular tachycardia, unspecified (principal); I10 Essential (primary) hypertension | CPT/HCPCS: 93005; 99212 ==

== ENCOUNTER 2024-01-08 16:30 | Outpatient (REF) | payer MEDICARE, SELFPAY ==
[2024-01-08 16:45] LABS: MANUAL DIFF FLAG NO
[2024-01-08 17:33] LABS: Basophils Absolute Auto 0.1 X10*3/uL (0.0-0.2); Basophils Percent Auto 0.7 % (0-2); Eosinophils Absolute Auto 0.3 X10*3/uL (0.0-0.4); Eosinophils Percent Auto 3.6 % (0-4); Hematocrit 43.6 % (42.0-52.0); Hemoglobin 14.8 g/dl (14.0-18.0); Imm Gran Abs Auto 0.03 X10*3/uL (0.00-0.03); Imm Gran Pct Auto 0.4 % (0.0-0.4); Lymphocytes Absolute Auto 2.1 X10*3/uL (1.2-4.9); Lymphocytes Percent Auto 27.8 % (20-40); Mean Corpuscular HGB Conc 33.9 g/dl (31.0-36.0); Mean Corpuscular Hemoglobin 29.9 pg (27.0-33.0); Mean Corpuscular Volume 88.1 fL (80.0-98.0); Mean Platelet Volume 10.4 fL (9.4-12.4); Monocytes Absolute Auto 0.7 X10*3/uL (0.1-1.2); Monocytes Percent Auto 9.7 % (2-11); Neutrophils Absolute Auto 4.4 x10*3/uL (2.0-8.3); Neutrophils Percent Auto 57.8 % (45-73); Platelet Count 290 X10*3/uL (160-400); Red Blood Count 4.95 X10*6/uL (4.60-5.80); Red Cell Distribution Width 12.6 % (11.0-16.0); White Blood Count 7.5 X10*3/uL (4.8-10.8)
[2024-01-08 18:11] LABS: Erythrocyte Sedimentation Rate 16 MM/HR (0-15)
[2024-01-08 18:15] LABS: Alanine Aminotransferase 16 U/L (0-40); Alkaline Phosphatase 65 U/L (39-117); Anion Gap 8 (12-20); Aspartate Amino Transferase 21 U/L (5-37); Bilirubin Total 0.4 mg/dL (0.0-1.0); Blood Urea Nitrogen 15 mg/dL (9-16); C Reactive Protein 0.15 mg/dL (< or = 0.50); Calcium 9.3 mg/dL (8.4-10.2); Carbon Dioxide 33 mmol/L (22-29); Chloride 106 mmol/L (96-108); Estimated Glomerular Filt Rate > 60; Glucose Random 85 mg/dL (60-115); Potassium 4.7 mmol/L (3.3-5.1); Sodium 142 mmol/L (135-145); Total Protein 7.4 g/dL (6.5-8.0)
[2024-01-08 18:18] LABS: Rheumatoid Factor < 13.0 IU/mL (<15.0)
[2024-01-08 18:30] LABS: Free T4 (Free Thyroxine) 0.92 ng/dL (0.71-1.85); Thyroid Stimulating Hormone 1.42 uIU/mL (0.32-4.0)
[2024-01-10 00:51] LABS: Vitamin B12 327 pg/mL (200-900)
[2024-01-11 14:59] LABS: Anti Nuclear Antibody Screen NEGATIVE (NEGATIVE)
== END 2024-01-08 16:31 | disposition home or self-care (01) ==
LOC: HO.LAB 16:30
PROVIDERS: PCP Internal Medicine; Visit Provider Internal Medicine
DX: M79.606 Pain in leg, unspecified (principal); I10 Essential (primary) hypertension
CPT/HCPCS: 36415; 80053; 82550; 82607; 84439; 84443; 85025; 85652; 86038; 86140; 86431

== ENCOUNTER 2024-08-15 10:30 | Outpatient (REF) | payer MEDICARE, SELFPAY ==
[2024-08-15 12:22] LABS: Anion Gap 8 (12-20); Blood Urea Nitrogen 16 mg/dL (9-16); Carbon Dioxide 31 mmol/L (22-29); Chloride 103 mmol/L (96-108); Estimated Glomerular Filt Rate > 60; Glucose Random 124 mg/dL (60-115); Sodium 138 mmol/L (135-145)
== END 2024-08-15 10:31 | disposition home or self-care (01) ==
LOC: HO.LAB 10:30
PROVIDERS: PCP Internal Medicine; Visit Provider Internal Medicine Cardiovascular Disease
DX: I47.10 Supraventricular tachycardia, unspecified (principal); R00.1 Bradycardia, unspecified; I10 Essential (primary) hypertension
CPT/HCPCS: 36415; 80048

== ENCOUNTER 2024-08-16 10:17 | Outpatient (AMB) | payer MEDICARE, SELFPAY ==
[2024-08-16 10:18] VITALS: BP 110/74; PULSE 64; BMI 31.0
--- NOTE | 2024-08-16 10:18 | A.OFFVIS_ITS ---
Vital Signs 08/16/24 10:18 Height 5 ft 10 in Weight 216 lb 0.848 oz BMI 31.0 BP 110/74 Blood Pressure Location Lt brachial Position Sitting Pulse 64 Intake Visit Reasons: problems with elevated bps Intake Note: Follow-up bp was elevated started valsartan feeling better get fluttering at times Special Delivery Carrier Required: No Allergies prednisone [Prednisone] Allergy (Mild, Verified 11/23/20 10:34) HIVES Medication List - Last Reconciled 08/16/24 by Bayron Garcias MD albuterol sulfate 90 mcg/actuation 2 puffs inhalation QID PRN pantoprazole 40 mg PO DAILY simvastatin 20 mg PO BEDTIME valsartan 80 mg PO DAILY zolpidem 10 mg PO BEDTIME HPI Comments Details: Pernell comes for follow-up. He developed side effects to amlodipine therapy with leg edema and rash and he had to stop it. Blood pressure remained control for couple of months and then started rising with increase exercise. We started on valsartan therapy which is tolerating well with much improved blood pressure control at home. His renal functions are stable. He comes for follow-up today. He continues to have intermittent and sporadic episodes of palpitations on his cardia mobile appears to be isolated PVCs. He has not had prolonged palpitations such as SVT. The symptoms of palpitation are not too bothersome to him. He denies any exertional chest pain or shortness of breath. Denies any lightheadedness, syncope. [facility] Medical History HTN (hypertension) Arthritis History of prostate cancer GERD (gastroesophageal reflux disease) Elevated cholesterol Surgical History Hx of left inguinal hernia repair History of esophagogastroduodenoscopy (EGD) H/O colonoscopy Hx of radical prostatectomy Family History Father CAD (coronary artery disease) Mother No problems noted. Social History Are you a primary school childcare attendant to a significant other at home: No Do you presently have visiting nurse or other home services: No Patient Tobacco Use Status: Never used Tobacco Review of Systems Const Denies chills, Denies fatigue, Denies fever(s), Denies frequent falls, Denies weakness, Denies weight gain and Denies weight loss ENT Denies dizziness Card Denies chest pain, Denies leg edema, Denies lightheadedness, Denies palpitations, Denies dyspnea, Denies dyspnea on exertion, Denies orthopnea and Denies other (loss of consciousness) Resp Denies cough, Denies dyspnea and Denies dyspnea on exertion GI Denies hematochezia and Denies change in stool character Musc Denies abnormal gait, Denies muscle weakness, Denies numbness, Denies radiating pain into limb and Denies tingling Neuro Denies Abnormal speech present, Denies abnormal gait, Denies dizziness, Denies frequent falls, Denies numbness, Denies tingling and Denies weakness Endo Denies fatigue and Denies palpitations Physical Exam Vital Signs: Last Vital Signs Pulse 64 08/16/24 10:18 BP 110/74 08/16/24 10:18 BMI result Body Mass Index 31.0 Const General: cooperative, comfortable, no acute distress, alert, awake and Physically active Nutritional Appearance: average body habitus and well nourished Orientation/consciousness: patient oriented x3 Limitations: no limitations Neck Neck: Yes trachea midline, Yes supple and Yes no JVD Resp Effort & Inspection: normal respiratory effort Auscultation: clear to auscultation bilaterally Cardio Jugular venous distension: no JVD Palpation: normal PMI Rate: regular rate Rhythm: regular rhythm Heart sounds: S1 normal heart sound present, S2 normal heart sound present, no click, no gallops and Murmur heart sound present systolic early Neuro General: patient oriented x3 and no focal motor deficits Speech: No Abnormal speech present Extrem General: Yes no clubbing, cyanosis or edema Assessment & Plan Assessment & Plan (1) HTN (hypertension): Code(s): I10 - Essential (primary) hypertension Category: Medical Plan: Recent onset hypertension, with non tolerance to amlodipine therapy. At this point time he has tolerated valsartan therapy with good response to blood pressure control with stable renal function. Advised to continue the same. Continue low-salt diet. Continue stress mitigation strategies. Continue monitor blood pressure at home maintain a log. Goal blood pressure less than 130/84. He understands and agrees. Advised to call me with any changes in his blood pressure readings at home (2) SVT (supraventricular tachycardia): Code(s): I47.1 - Supraventricular tachycardia Category: Medical Plan: SVT with no clinical recurrence. He is having symptoms associated with PVCs. We discussed about vagal maneuvers. Avoidance of stimulants was discussed. Stress mitigation strategies were discussed. (3) PVCs (premature ventricular contractions): Code(s): I49.3 - Ventricular premature depolarization Category: Medical Plan: Symptoms are sporadic palpitation consistent with PVCs. Currently symptoms are not bothersome. Would avoid any rate lowering medication due to his baseline bradycardia. Continue stress mitigation strategies. Avoidance of stimulants was discussed. Pathophysiology and benign nature of isolated PVCs were discussed. He understands agrees. Will follow up in the clinic in 1 year's time, sooner p.r.n.. Thank you for allowing me to partake in his care Coding Level of Care Code Est Pt Level 4 (44147) Complex EM visit Add On G2211 Diagnoses HTN (hypertension) I10 SVT (supraventricular tachycardia) I47.1 PVCs (premature ventricular contractions) I49.3
== END 2024-08-16 10:38 | disposition home or self-care (01) ==
PROVIDERS: PCP Internal Medicine; Visit Provider Internal Medicine Cardiovascular Disease
DX: I10 Essential (primary) hypertension (principal); I47.10 Supraventricular tachycardia, unspecified; I49.3 Ventricular premature depolarization
CPT/HCPCS: 99214; G2211

== ENCOUNTER → 2024-08-16 10:17 | Outpatient (BNVA) | payer MEDICARE, SELFPAY | PROVIDERS: PCP Internal Medicine; Visit Provider Internal Medicine Cardiovascular Disease | DX: I49.3 Ventricular premature depolarization (principal); I10 Essential (primary) hypertension; I47.10 Supraventricular tachycardia, unspecified | CPT/HCPCS: 99212 ==

== ENCOUNTER 2025-02-10 18:10 | Emergency (ER) | payer MEDICARE, SELFPAY ==
[2025-02-10 18:23] VITALS: BP 190/93; PULSE 59; RESP 18; TEMP 36.3; O2SAT 97; BMI 30.1
--- NOTE | 2025-02-10 18:24 | ED_ITS ---
HPI - General Adult General Chief complaint: General Medical Stated complaint: High Blood Pressure, Week Time Seen by Provider: 02/10/25 23:34 Related Data Home Medications ?Medication ?Instructions ?Recorded ?Confirmed albuterol sulfate 90 mcg/actuation 2 puff inhalation QID PRN seasonal 11/23/20 08/16/24 aerosol inhaler allergies pantoprazole 40 mg tablet,delayed 40 mg PO DAILY 12/01/22 08/16/24 release Previous Rx's ?Medication ?Instructions ?Recorded simvastatin 20 mg tablet 20 mg PO BEDTIME #90 tabs 08/08/24 valsartan 80 mg tablet 80 mg PO DAILY #90 tabs 12/08/24 zolpidem 10 mg tablet 10 mg PO BEDTIME #30 tabs 12/29/24 gabapentin 300 mg capsule 300 mg PO TID #30 caps 02/11/25 (Neurontin) Allergies Allergy/AdvReac Type Severity Reaction Status Date / Time prednisone [Prednisone] Allergy Mild HIVES Verified 02/10/25 18:24 PMFSH Past Medical History Medical History HTN (hypertension) Arthritis History of prostate cancer GERD (gastroesophageal reflux disease) Elevated cholesterol Surgical History Hx of left inguinal hernia repair History of esophagogastroduodenoscopy (EGD) H/O colonoscopy Hx of radical prostatectomy Family History Family History Father CAD (coronary artery disease) Mother No problems noted. Social History Social History Are you a primary insurance healthcare consultant to a significant other at home: No Do you presently have visiting nurse or other home services: No Patient Tobacco Use Status: Never used Tobacco Advance Directives: No Advance Directives Information Provided: No Physical Exam ED Vital Signs: Vital Signs - 24 hr 02/10/25 18:23 02/10/25 21:06 Temperature 97.3 F 98.2 F Pulse Rate 59 57 Respiratory Rate 18 16 Blood Pressure 190/93 H 187/86 H Pulse Oximetry 97 97 Oxygen Delivery Method Room Air Room Air BMI result Body Mass Index 30.1 Course Course Course Narrative: NAITA, this is a rapid medical exam performed by Josh Moe please refer to primary provider for complete H&P- 74 year old male presents for evaluation of high blood pressure. He reports that his BP has been about 180/100 at home. He reports feeling weak and shaky. Denies chest pain, headache. Plan for labs, EKG Medical Decision Making Lab Data 02/10/25 18:52 02/10/25 18:52 Labs: Lab Results 02/10/25 02/10/25 Range/Units 18:52 18:58 WBC 6.9 (4.8-10.8) X10*3/uL RBC 4.61 (4.60-5.80) X10*6/uL Hgb 14.2 (14.0-18.0) g/dl Hct 41.5 L (42.0-52.0) % MCV 90.0 (80.0-98.0) fL MCH 30.8 (27.0-33.0) pg MCHC 34.2 (31.0-36.0) g/dl RDW 12.9 (11.0-16.0) % Plt Count 300 (160-400) X10*3/uL MPV 9.7 (9.4-12.4) fL Immature Gran % (Auto) 0.3 (0.0-0.4) % Neut % (Auto) 49.8 (45-73) % Lymph % (Auto) 32.3 (20-40) % Barnwell % (Auto) 11.6 H (2-11) % Eos % (Auto) 4.7 H (0-4) % Baso % (Auto) 1.3 (0-2) % Lymph # (Auto) 2.2 (1.2-4.9) X10*3/uL Barnwell # (Auto) 0.8 (0.1-1.2) X10*3/uL Eos # (Auto) 0.3 (0.0-0.4) X10*3/uL Baso # (Auto) 0.1 (0.0-0.2) X10*3/uL Abs Immat Gran (auto) 0.02 (0.00-0.03) X10*3/uL Absolute Neuts (auto) 3.4 (2.0-8.3) x10*3/uL Absolute Nucleated RBC 0.000 (0.0-0.012) X10*3/uL Nucleated RBC % (auto) 0.0 (0.0-0.2) /100WBC Sodium 144 (135-145) mmol/L Potassium 4.0 (3.3-5.1) mmol/L Chloride 105 (96-108) mmol/L Carbon Dioxide 30 H (22-29) mmol/L Anion Gap 13 (12-20) BUN 16 (9-16) mg/dL Creatinine 1.07 (0.5-1.4) mg/dL Estim Creat Clear Calc 72.3 Estimated GFR > 60 Random Glucose 85 (60-115) mg/dL Calcium 9.3 (8.4-10.2) mg/dL Magnesium 2.2 (1.6-2.6) mg/dL Total Bilirubin 0.4 (0.0-1.0) mg/dL AST 25 (5-37) U/L ALT 22 (0-40) U/L Alkaline Phosphatase 68 (39-117) U/L Total Protein 8.0 (6.5-8.0) g/dL Albumin 4.3 (3.5-5.0) g/dL Lipase 17 (8-78) U/L Urine Color Yellow Urine Appearance Clear Urine pH 6.0 (5.0-9.0) Ur Specific Mabel 1.010 (1.005-1.025) Urine Protein Negative (Neg-Trace) mg/dL Urine Glucose (UA) Negative (Negative) mg/dL Urine Ketones Negative (Negative) mg/dL Urine Blood Negative (Negative) Urine Nitrite Negative (Negative) Ur Leukocyte Esterase Negative (Negative) Urine RBC 0-2 (0-2) /HPF Urine WBC 0-5 (0-5) /HPF Ur Squamous Epith Cells 0-2 (0-2) /HPF Urine Bacteria None Seen (None Seen) Hyaline Casts 0-2 (0-2) /LPF Influenza Type A (PCR) NEGATIVE (Negative) Influenza Type B (PCR) NEGATIVE (Negative) RSV RNA Qual (PCR) NEGATIVE (Negative) SARS-CoV-2 RNA (RT-PCR) NEGATIVE (Negative) Discharge Plan Discharge Clinical Impression: HTN (hypertension), Neuropathic pain Patient Disposition: Home, Self-Care Instructions: Shingles (ED), Hypertension (ED) Prescriptions: New gabapentin [Neurontin] 300 mg capsule 300 mg PO TID Qty: 30 0RF No Action simvastatin 20 mg tablet 20 mg PO BEDTIME Qty: 90 0RF valsartan 80 mg tablet 80 mg PO DAILY Qty: 90 3RF zolpidem 10 mg tablet 10 mg PO BEDTIME Qty: 30 1RF albuterol sulfate 90 mcg/actuation HFA aerosol inhaler 2 puff inhalation QID PRN (Reason: seasonal allergies) pantoprazole 40 mg tablet,delayed release (DR/EC) 40 mg PO DAILY Referrals: Bayron Garcias MD [Physician] - 2 days Print Language: German
--- NOTE | 2025-02-10 18:25 | ECG_ITS ---
Test Reason : Pain Blood Pressure : */* mmHG Vent. Rate : 62 BPM Atrial Rate : 62 BPM P-R Int : 230 ms QRS Dur : 132 ms QT Int : 424 ms P-R-T Axes : 61 68 37 degrees QTcB Int : 430 ms Sinus rhythm with 1st degree A-V block Right bundle branch block Abnormal ECG When compared with ECG of 26-Apr-2008 07:21, Right bundle branch block is now Present Referred By: Kenton Moe Electronically Signed By: Lonnie Mccann
[2025-02-10 18:58] LABS: MANUAL DIFF FLAG NO
[2025-02-10 18:59] LABS: Basophils Absolute Auto 0.1 X10*3/uL (0.0-0.2); Basophils Percent Auto 1.3 % (0-2); Eosinophils Absolute Auto 0.3 X10*3/uL (0.0-0.4); Eosinophils Percent Auto 4.7 % (0-4); Hematocrit 41.5 % (42.0-52.0); Hemoglobin 14.2 g/dl (14.0-18.0); Imm Gran Abs Auto 0.02 X10*3/uL (0.00-0.03); Imm Gran Pct Auto 0.3 % (0.0-0.4); Lymphocytes Absolute Auto 2.2 X10*3/uL (1.2-4.9); Lymphocytes Percent Auto 32.3 % (20-40); Mean Corpuscular HGB Conc 34.2 g/dl (31.0-36.0); Mean Corpuscular Hemoglobin 30.8 pg (27.0-33.0); Mean Platelet Volume 9.7 fL (9.4-12.4); Monocytes Absolute Auto 0.8 X10*3/uL (0.1-1.2); Monocytes Percent Auto 11.6 % (2-11); Neutrophils Absolute Auto 3.4 x10*3/uL (2.0-8.3); Neutrophils Percent Auto 49.8 % (45-73); Platelet Count 300 X10*3/uL (160-400); Red Blood Count 4.61 X10*6/uL (4.60-5.80); Red Cell Distribution Width 12.9 % (11.0-16.0); White Blood Count 6.9 X10*3/uL (4.8-10.8)
--- OUTSIDE RECORDS SUMMARY | 2025-02-10 19:01 | XMS_ITS | Patient Health Record ---
Author Organization [facility] Address [address] [place] [address] Care Team Providers Care Dietary Services Director Name Role Phone Jose Craven MD Primary Care Provider Imtiaz Hess Unavailable [phone] Allergies Allergen (clinical drug ingredient) Drug/Non Drug Allergy documented on EMR Reaction Allergy Type Onset Date Status PredniSONE hives Drug Allergy Active Reason For Referral No Information Medications Medication SIG (Take, Route, Frequency, Duration) Notes Start Date End Date Status Readi-Cat 2 2 % 450 ml Orally Once f or 1 days 11/06/2020 Active Ambien prn Active Baby Aspirin 81 MG 1 tablet Orally Once a day/ as needed Active Dicyclomine HCl 10 MG 1-2 Orally Q 6 tu rs prn abdominal bloating/discomfort/gas for 90 Active Pantoprazole Sodium 40 MG TAKE 1 TABLET BY MOUTH EVERY DAY FOR 90 DAYS for 90 Active Simvastatin Active Immunizations Vaccine Route Administration Date Status Comme nts Influenza Unknown 10/30/2020 Refused Problems Problem Type SNOMED Code ICD Code Onset Dates Problem Status W/U Status Risk Notes Problem History of adenomatous polyp of colon (309463271) History of adenomatous polyp of colon (Z86.010) Active confirmed Problem Abdominal bloating (705467593) Abdominal bloating (R14.0) Active confirmed Problem Change in bowel habit (28349645) Change in bowel habits (R19.4) Active confirmed Problem Screening for malignant neoplasm of rectum (522064926) Encounter for screening for malignant neoplasm of rectum (Z12.12) Active confirmed Problem 20966093 Preprocedural examination (Z01.818) Active confirmed Problem Gas (78180219) Gas (R14.3) Active confirmed Problem 661088457 Gastroesophageal reflux disease, esophagitis presence not specified (K21.9) Active confirmed Problem 972959059 History of colon cancer (Z85.038) Active confirmed Problem Left lower quadrant pain (962705007) Abdominal pain, acute, left lower quadrant (R10.32) Active confirmed Plan Of Treatment Pending Test Test Name Order Date BUN 10/30/2020 CREATININE 10/30/2020 LIVER PROFILE 10/02/2020 AMYLASE 10/02/2020 LIPASE 10/02/2020 CBC w DIFF 10/02/2020 CELIAC PANEL #10 10/02/2020 GIARDIA AG, STOOL EIA 10/30/2020 OVA & PARASITES (O&P) 10/30/2020 CT ABD & PELVIS WITH CONTRAST 10/30/2020 Future Test Test Name Order Date COLONOSCOPY 02/13/2016 COLONOSCOPY 10/30/2020 Insurance Providers Payer Name Payer Address Payer Phone Subscriber Number Group Number Insured Name Patient Relationship to Insured Coverage Start Date Coverage End Date [facility] [address] [place], [place] [id number] [phone] [id number] ELLIOTT CHE Self - patient is the insured Medical (General) History Medical History History ICD Code Malignant colon polyp removed at 40 cm i n 04/2004 Colon polyps-tubular adenoma removed in 2006 as well during a surveillance colonoscopy Elevated cholesterol Denies PA,DM,CVA,Lung disease,renal dise ase EGD in 09/2009 with an esophageal ring th at was dilated-also noted was a HH Prostate cancer with surgery as below Negative colonoscopy in 09/2009. Negative colonoscopy in February of 2013 except for a hyperplastic polyp, sigmoid diverticulosis, and internal hemorrhoids Neg. ETT in 2014--scheduled for a F/U ET T on 02/19/16 Colonoscopy in 07/2016 was negative exce pt for a benign inflammatory polyp Surgical History Surgery Date(Month/Year) Radical Prostatectomy 2007 approx Left inguinal hernia
[2025-02-10 19:14] LABS: Alanine Aminotransferase 22 U/L (0-40); Albumin Level 4.3 g/dL (3.5-5.0); Alkaline Phosphatase 68 U/L (39-117); Anion Gap 13 (12-20); Aspartate Amino Transferase 25 U/L (5-37); Bilirubin Total 0.4 mg/dL (0.0-1.0); Blood Urea Nitrogen 16 mg/dL (9-16); Calcium 9.3 mg/dL (8.4-10.2); Carbon Dioxide 30 mmol/L (22-29); Chloride 105 mmol/L (96-108); Creatinine Clr Calc Pharmacy 72.3; Estimated Glomerular Filt Rate > 60; Glucose Random 85 mg/dL (60-115); Lipase 17 U/L (8-78); Magnesium 2.2 mg/dL (1.6-2.6); Sodium 144 mmol/L (135-145)
[2025-02-10 19:22] LABS: Appearance Urine Clear; Color Urine Yellow; Glucose Urine UA Negative (Negative); Leukocyte Esterase Urine Negative (Negative); Nitrite Urine Negative (Negative); Urine Blood Negative (Negative); Urine Ketones Negative (Negative); Urine Protein Negative (Neg-Trace)
[2025-02-10 19:25] LABS: Bacteria Urine None Seen (None Seen); Hyaline Casts Urine 0-2 /LPF (0-2); RBC Urine 0-2 /HPF (0-2); Squamous Epithelial Cell Urine 0-2 /HPF (0-2); WBC Urine 0-5 /HPF (0-5)
[2025-02-10 19:38] LABS: Influenza A PCR NEGATIVE (Negative); Influenza B PCR NEGATIVE (Negative); Resp Syncy Virus RNA Qual PCR NEGATIVE (Negative); SARS COV2 PCR INHOUSE NEGATIVE (Negative)
[2025-02-10 21:06] VITALS: BP 187/86; PULSE 57; RESP 16; TEMP 36.8; O2SAT 97
--- NOTE | 2025-02-10 23:44 | PC.NURSE ---
Barr aware of pts BP. neuros intact. pt is axox4 ambulatory with steady gait. awaiting eval by provider.
--- NOTE | 2025-02-11 00:06 | ED.GENADULT ---
HPI - General Adult General Chief complaint: General Medical Stated complaint: High Blood Pressure, Week Time Seen by Provider: 02/10/25 23:34 History of Present Illness HPI narrative: Patient is 74-year-old male with a history of hypertension. Baseline is on valsartan 80 mg daily. Patient blood pressure was under control. Until recently patient had episode of shingle since then he has been having pain in his left thigh area with a shingle was. Blood pressure is noted to be 180 over 90s. Patient came to the ED. No fever no chills. No focal weakness. No chest pain or diaphoresis. Patient is just worried about his blood pressure and came to the ER. Related Data Home Medications ?Medication ?Instructions ?Recorded ?Confirmed albuterol sulfate 90 mcg/actuation 2 puff inhalation QID PRN seasonal 11/23/20 08/16/24 aerosol inhaler allergies pantoprazole 40 mg tablet,delayed 40 mg PO DAILY 12/01/22 08/16/24 release Previous Rx's ?Medication ?Instructions ?Recorded simvastatin 20 mg tablet 20 mg PO BEDTIME #90 tabs 08/08/24 valsartan 80 mg tablet 80 mg PO DAILY #90 tabs 12/08/24 zolpidem 10 mg tablet 10 mg PO BEDTIME #30 tabs 12/29/24 gabapentin 300 mg capsule 300 mg PO TID #30 caps 02/11/25 (Neurontin) Allergies Allergy/AdvReac Type Severity Reaction Status Date / Time prednisone [Prednisone] Allergy Mild HIVES Verified 02/10/25 18:24 Review of Systems Review of Systems: No fever no chills positive pain to the left hip area Yes all other systems are reviewed and are negative [facility] Past Medical History Medical History HTN (hypertension) Arthritis History of prostate cancer GERD (gastroesophageal reflux disease) Elevated cholesterol Surgical History Hx of left inguinal hernia repair History of esophagogastroduodenoscopy (EGD) H/O colonoscopy Hx of radical prostatectomy Family History Family History Father CAD (coronary artery disease) Mother No problems noted. Social History Social History Are you a primary childcare worker to a significant other at home: No Do you presently have visiting nurse or other home services: No Patient Tobacco Use Status: Never used Tobacco Advance Directives: No Advance Directives Information Provided: No Physical Exam ED Vital Signs: Vital Signs - 24 hr 02/10/25 18:23 02/10/25 21:06 Temperature 97.3 F 98.2 F Pulse Rate 59 57 Respiratory Rate 18 16 Blood Pressure 190/93 H 187/86 H Pulse Oximetry 97 97 Oxygen Delivery Method Room Air Room Air BMI result Body Mass Index 30.1 Medical Decision Making Medical Decision Making MDM Narrative: Patient has elevated blood pressure without any cardiac symptoms. Has a history of shingles and has been having pain in that same area. Question neuropathic pain. Patient attempted to take Tylenol Motrin with only moderate relief of symptoms. Blood pressure has been noted to be elevated since the shingles. My interpretation of patient's EKG showed a sinus rhythm MD is normal there is a right bundle branch block QTC is normal there is no acute ST segment elevation. Patient fair appearing. Blood pressure was noted to be 180 over 90s. Electrolytes were unremarkable. Kidney functions normal. Patient's urine was negative for infection. No signs of anemia hemoglobin 14.2. Had a long discussion with patient will start patient on Neurontin for neuropathic pain recheck blood pressure with his own direct support professional on Thursday. In stable condition. Differential Diagnosis Hypertensive urgency, shingles, neuropathic pain Admission/Observation Consideration of admission/observation: Escalation of care including admission/observation considered Lab Data [facility] Lab Attestation statement: I reviewed the patient's lab results. 02/10/25 18:52 02/10/25 18:52 Labs: Lab Results 02/10/25 02/10/25 Range/Units 18:52 18:58 WBC 6.9 (4.8-10.8) X10*3/uL RBC 4.61 (4.60-5.80) X10*6/uL Hgb 14.2 (14.0-18.0) g/dl Hct 41.5 L (42.0-52.0) % MCV 90.0 (80.0-98.0) fL MCH 30.8 (27.0-33.0) pg MCHC 34.2 (31.0-36.0) g/dl RDW 12.9 (11.0-16.0) % Plt Count 300 (160-400) X10*3/uL MPV 9.7 (9.4-12.4) fL Immature Gran % (Auto) 0.3 (0.0-0.4) % Neut % (Auto) 49.8 (45-73) % Lymph % (Auto) 32.3 (20-40) % Sherman % (Auto) 11.6 H (2-11) % Eos % (Auto) 4.7 H (0-4) % Baso % (Auto) 1.3 (0-2) % Lymph # (Auto) 2.2 (1.2-4.9) X10*3/uL Sherman # (Auto) 0.8 (0.1-1.2) X10*3/uL Eos # (Auto) 0.3 (0.0-0.4) X10*3/uL Baso # (Auto) 0.1 (0.0-0.2) X10*3/uL Abs Immat Gran (auto) 0.02 (0.00-0.03) X10*3/uL Absolute Neuts (auto) 3.4 (2.0-8.3) x10*3/uL Absolute Nucleated RBC 0.000 (0.0-0.012) X10*3/uL Nucleated RBC % (auto) 0.0 (0.0-0.2) /100WBC Sodium 144 (135-145) mmol/L Potassium 4.0 (3.3-5.1) mmol/L Chloride 105 (96-108) mmol/L Carbon Dioxide 30 H (22-29) mmol/L Anion Gap 13 (12-20) BUN 16 (9-16) mg/dL Creatinine 1.07 (0.5-1.4) mg/dL Estim Creat Clear Calc 72.3 Estimated GFR > 60 Random Glucose 85 (60-115) mg/dL Calcium 9.3 (8.4-10.2) mg/dL Magnesium 2.2 (1.6-2.6) mg/dL Total Bilirubin 0.4 (0.0-1.0) mg/dL AST 25 (5-37) U/L ALT 22 (0-40) U/L Alkaline Phosphatase 68 (39-117) U/L Total Protein 8.0 (6.5-8.0) g/dL Albumin 4.3 (3.5-5.0) g/dL Lipase 17 (8-78) U/L Urine Color Yellow Urine Appearance Clear Urine pH 6.0 (5.0-9.0) Ur Specific [place] 1.010 (1.005-1.025) Urine Protein Negative (Neg-Trace) mg/dL Urine Glucose (UA) Negative (Negative) mg/dL Urine Ketones Negative (Negative) mg/dL Urine Blood Negative (Negative) Urine Nitrite Negative (Negative) Ur Leukocyte Esterase Negative (Negative) Urine RBC 0-2 (0-2) /HPF Urine WBC 0-5 (0-5) /HPF Ur Squamous Epith Cells 0-2 (0-2) /HPF Urine Bacteria None Seen (None Seen) Hyaline Casts 0-2 (0-2) /LPF Influenza Type A (PCR) NEGATIVE (Negative) Influenza Type B (PCR) NEGATIVE (Negative) RSV RNA Qual (PCR) NEGATIVE (Negative) SARS-CoV-2 RNA (RT-PCR) NEGATIVE (Negative) Independent Interpretation I performed an independent interpretation of an: EKG (Sinus heart rate is 70 there is a right bundle branch block MD normal QTC is normal) Discharge Plan Discharge Clinical Impression: HTN (hypertension), Neuropathic pain Patient Disposition: Home, Self-Care Instructions: Shingles (ED), Hypertension (ED) Prescriptions: New gabapentin [Neurontin] 300 mg capsule 300 mg PO TID Qty: 30 0RF No Action simvastatin 20 mg tablet 20 mg PO BEDTIME Qty: 90 0RF valsartan 80 mg tablet 80 mg PO DAILY Qty: 90 3RF zolpidem 10 mg tablet 10 mg PO BEDTIME Qty: 30 1RF albuterol sulfate 90 mcg/actuation HFA aerosol inhaler 2 puff inhalation QID PRN (Reason: seasonal allergies) pantoprazole 40 mg tablet,delayed release (DR/EC) 40 mg PO DAILY Referrals: Bayron Garcias MD [Physician] - 2 days Print Language: Mohawk
[2025-02-11 00:34] VITALS: BP 197/94; PULSE 58; RESP 16; TEMP 36.9; O2SAT 97
== END 2025-02-11 00:34 | disposition home or self-care (01) ==
PROVIDERS: Physician Assistant; Emergency Provider Emergency Medicine Emergency Medical Services; PCP Internal Medicine
DX: G62.9 Polyneuropathy, unspecified (principal); I10 Essential (primary) hypertension; R07.89 Other chest pain; Z03.818 Encounter for observation for suspected exposure to other biological agents ruled out; Z79.899 Other long term (current) drug therapy
CPT/HCPCS: 0241U; 80053; 81001; 83690; 83735; 85025; 93005; 99283; 99284

== ENCOUNTER → 2025-02-10 18:25 | Outpatient (BNV) | payer MEDICARE, SELFPAY | PROVIDERS: Emergency Provider Emergency Medicine Emergency Medical Services; PCP Internal Medicine; Visit Provider Internal Medicine Cardiovascular Disease | DX: I44.0 Atrioventricular block, first degree (principal); I45.10 Unspecified right bundle-branch block | CPT/HCPCS: 93010 ==

== ENCOUNTER 2025-03-17 11:05 | Outpatient (AMB) | payer MEDICARE, SELFPAY ==
[2025-03-17 10:45] VITALS: BP 130/70; PULSE 85; TEMP 36.3; O2SAT 99
--- NOTE | 2025-03-17 10:45 | MHC.PC.OV ---
Vital Signs 03/17/25 10:45 Height 5 ft 10 in Weight 209 lb BMI 30.0 BP 130/70 Blood Pressure Location Lt brachial Position Sitting Pulse 85 Pulse Source Pulse Oximeter Temp 97.3 F Temp Source Axillary Pulse Oximetry (%) 99 Oxygen Delivery Method Room Air Intake Visit Reasons: routine Building Custodian Required: No Accompanied by: Self / Same As Patient Allergies prednisone (Prednisone) Allergy (Mild, Verified 03/17/25 10:45) HIVES Tobacco use date assessed: 03/17/25 Fall risk assessment: No Falls in past year Last assessed Fall Risk: 03/17/25 Dental Screening Dental Screen Date: 03/17/25 Did you have a dental visit in the last 12 months?: Yes Did you have a dental problem in the last 6 months where you did not have access to dental care?: No HPI HPI Comments History of Present Illness Details The patient is a 74 year old male with a past medical history of htn, hld, asthma presenting for follow up. CV: on valsartan, simvastatin. 130/70. Denies chest pain, exertional dyspnea. Recent walk in visit for shingles upper left thigh hip. Thereafter was seen in ER for unrelenting shingles pain and elevated blood pressure readings. His pain has for the most part resolved. Insomnia: zolpidem. GI: On pantoprazole colonoscopy 11/28/20-colonoscopy ROS CONSTITUTIONAL: Denies weight loss, fever and chills. HEENT: Denies changes in vision and hearing. RESPIRATORY: Denies SOB and cough. CV: Denies palpitations and CP GI: Denies abdominal pain, nausea, vomiting and diarrhea. : Denies dysuria and urinary frequency. MSK: Denies new myalgia and joint pain. SKIN: Denies rash and pruritus. NEUROLOGICAL: Denies headache PSYCHIATRIC: Denies recent changes in mood. PHYSICAL EXAM: GENERAL: Alert and oriented x 3. NAD EYES: EOMI. Anicteric. HENT: Moist mucous membranes. No scleral icterus. No cervical lymphadenopathy. LUNGS: Clear to auscultation bilaterally. CARDIOVASCULAR: Regular rate and rhythm. No murmur. No JVD. ABDOMEN: Soft, non-tender +bs EXTREMITIES: No edema. Non-tender. SKIN: No rashes or lesions. Warm. NEUROLOGIC: No focal neurological deficits. CN II-XII grossly intact PSYCHIATRIC: Cooperative. Appropriate mood and affect. PFSH Medical History HTN (hypertension) Arthritis History of prostate cancer GERD (gastroesophageal reflux disease) Elevated cholesterol Surgical History Hx of left inguinal hernia repair History of esophagogastroduodenoscopy (EGD) H/O colonoscopy Hx of radical prostatectomy Family History Father CAD (coronary artery disease) Mother No problems noted. Social History Housing: House Are you a primary health care facility administrator to a significant other at home: No Do you presently have visiting nurse or other home services: No Patient Tobacco Use Status: Never used Tobacco e-Cigarette/Vaping Use: Never Used service: No Current occupational status: retired Cognitive needs: No Hearing needs: No Vision needs: Yes (reading glasses) Questionnaire PHQ-9 Over the last 2 weeks, how often have you been bothered by any of the following problems? 1. Little interest or pleasure in doing things: not at all 2. Feeling down, depressed, or hopeless: not at all 3. Trouble falling or staying asleep, or sleeping too much: not at all 4. Feeling tired or having little energy: not at all 5. Poor appetite or overeating: not at all 6. Feeling bad about yourself - or that you are a failure or have let yourself or your family down: not at all 7. Trouble concentrating on things, such as reading the newspaper or watching television: not at all 8. Moving or speaking so slowly that other people could have noticed. Or the opposite - being so fidgety or restless that you have been moving around a lot more than usual: not at all 9. Thoughts that you would be better off or of hurting yourself in some way: not at all Total score: 0 Source: Developed by Drs. Imtiaz Melgoza, Shannan Grimaldo, Spencer Sheffield and colleagues, with an educational myla from [employer]. Thrive Questionnaire Date Thrive assessed: 03/17/25 I am a: Patient Within the past 12 months, did the food you bought not last and you didn't have the money to get more?: Never true Within the past 12 months, did you worry whether your food would run out before you got money to buy more?: Never true Do you have trouble paying for medicines?: No Do you have trouble getting transportation to medical appointments?: No Do you have trouble paying your heating and electricity bill?: No Do you have trouble taking care of your child, family member or friend?: No Do you have trouble with day-to-day activities such as bathing, preparing meals, shopping, managing finances, etc.?: No Are you currently unemployed and looking for a job?: No Are you interested in more education?: No THRIVE Score: 0 AUDIT C Alcohol Use Questionnaire (AUDIT-C) 1. How often do you have a drink containing alcohol?: Monthly or less 2. How many drinks containing alcohol do you have on a typical day when you are drinking?: 1 or 2 3. How often do you have six or more drinks on one occasion?: Less than monthly Total Score: 2 GIO-7 AMB Questionnaire GIO-7 Date GIO - 7 assessed: 03/17/25 Feeling nervous, anxious, or on edge: 0 = Not at all Not being able to stop or control worryin = Not at all Worrying too much about different things: 0 = Not at all Trouble relaxin = Not at all Being so restless that it is hard to sit still: 0 = Not at all Becoming easily annoyed or irritable: 0 = Not at all Feeling afraid as if something awful might happen: 0 = Not at all Total GIO-7 score (0-4 normal; 5-9 mild; 10-14 moderate; 15-21 severe): 0 Source: Developed by Drs. Imtiaz Melgoza, Shannan Grimaldo, Spencer Sheffield and colleagues, with an educational myla from [employer]. Physical exam (Primary Care) Vital Signs: Last Vital Signs Temp 97.3 F 03/17/25 10:45 Pulse 85 03/17/25 10:45 BP 130/70 03/17/25 10:45 Pulse Ox 99 03/17/25 10:45 Oxygen Delivery Method Room Air 03/17/25 10:45 BMI result Body Mass Index 30.0 Tobacco/Smoking Status: Tobacco use Status Tobacco use date assessed 03/17/25 03/17/25 10:47 Patient Tobacco Use Status Never used Tobacco 03/17/25 10:47 e-Cigarette/Vaping Use Never Used 03/17/25 10:47 PHQ-9: PHQ-9 Score PHQ-9: Total score 0 03/19/25 10:38 Thrive Assessment: Date of Thrive Assessment Date Thrive assessed 03/17/25 03/17/25 10:47 Coding Level of Care Code New Pt Level 4 (46060) Complex EM visit Add On G2211 Diagnoses Primary hypertension I10 Hypertension type: primary hypertension Elevated cholesterol E78.00 Bradycardia R00.1 History of prostate cancer Z85.46 Assessment & Plan Assessment & Plan (1) HTN (hypertension): Code(s): I10 - Essential (primary) hypertension Category: Medical Qualifiers: Hypertension type: primary hypertension Qualified Code(s): I10 - Essential (primary) hypertension (2) Elevated cholesterol: Code(s): E78.00 - Pure hypercholesterolemia, unspecified Category: Medical (3) Bradycardia: Code(s): R00.1 - Bradycardia, unspecified Category: Medical (4) History of prostate cancer: Code(s): Z85.46 - Personal history of malignant neoplasm of prostate Category: Medical Plan 74 year old male to establish care past medical surgical social reviewed HTN-well controlled on current medications Insomnia well controlled Orders: Orders Prostate Specific Antigen 03/17/25 E78.00 - Pure hypercholesterolemia, unspecified, Z85.46 - Personal history of malignant neoplasm of prostate Lipid Panel 03/17/25 E78.00 - Pure hypercholesterolemia, unspecified, Z85.46 - Personal history of malignant neoplasm of prostate Complete Blood Count Auto Diff 03/17/25 E78.00 - Pure hypercholesterolemia, unspecified, I10 - Essential (primary) hypertension, K21.9 - Gastro-esophageal reflux disease without esophagitis, Z85.46 - Personal history of malignant neoplasm of prostate Comprehensive Met. Panel 03/17/25 E78.00 - Pure hypercholesterolemia, unspecified, I10 - Essential (primary) hypertension, K21.9 - Gastro-esophageal reflux disease without esophagitis, Z85.46 - Personal history of malignant neoplasm of prostate Medications: Refilled zolpidem 10 mg PO BEDTIME 90 tabs 3RF I10 - Essential (primary) hypertension, Z85.46 - Personal history of malignant neoplasm of prostate
--- OUTSIDE RECORDS SUMMARY | 2025-03-17 12:18 | XMS_ITS | Patient Health Record ---
Author Organization [facility] Address [address] [place] [address] Care Team Providers Care Cytogenetics Technologist Name Role Phone Jose Craven MD Primary Care Provider Imtiaz Hess Unavailable [phone] Allergies Allergen (clinical drug ingredient) Drug/Non Drug [...] Problem History of adenomatous polyp of colon (231761235) History of adenomatous polyp of colon (Z86.010) Active confirmed Problem Abdominal bloating (404201192) Abdominal bloating (R14.0) Active confirmed Problem Change in bowel habit (11165509) Change in bowel habits (R19.4) Active confirmed Problem Screening for malignant neoplasm of rectum (981559251) Encounter for screening for malignant neoplasm of rectum (Z12.12) Active confirmed Problem 07350358 Preprocedural examination (Z01.818) Active confirmed Problem Gas (57877560) Gas (R14.3) Active confirmed Problem 487874836 Gastroesophageal reflux disease, esophagitis presence not specified (K21.9) Active confirmed Problem 033096852 History of colon cancer (Z85.038) Active confirmed Problem Left lower quadrant pain (392438569) Abdominal pain, acute, left lower quadrant (R10.32) [...] Insured Coverage Start Date [place] [facility] [address] [place], [place] [id number] [phone] [id number] ELLIOTT CHE Self - patient is the insured Medical (General) History Medical History History ICD Code Malignant colon polyp removed at 40 cm i n 04/2004 Colon polyps-tubular adenoma removed in 2006 as well during a surveillance colonoscopy Elevated cholesterol Denies ID,DM,CVA,Lung disease,renal dise ase EGD in 09/2009 with [...]
== END 2025-03-17 11:45 | disposition home or self-care (01) ==
LOC: HO.HMCHD 11:05
PROVIDERS: PCP Internal Medicine; Visit Provider Internal Medicine
DX: I10 Essential (primary) hypertension (principal); E78.00 Pure hypercholesterolemia, unspecified; R00.1 Bradycardia, unspecified; Z85.46 Personal history of malignant neoplasm of prostate

== ENCOUNTER → 2025-03-17 11:05 | Outpatient (BNVA) | payer MEDICARE, SELFPAY | PROVIDERS: PCP Internal Medicine; Visit Provider Internal Medicine | DX: I10 Essential (primary) hypertension (principal); E78.00 Pure hypercholesterolemia, unspecified; R00.1 Bradycardia, unspecified; Z85.46 Personal history of malignant neoplasm of prostate; J45.909 Unspecified asthma, uncomplicated; B02.8 Zoster with other complications | CPT/HCPCS: 99202 ==

== ENCOUNTER 2025-05-04 08:42 | Outpatient (REF) | payer MEDICARE, SELFPAY ==
--- OUTSIDE RECORDS SUMMARY | 2025-05-04 08:56 | XMS_ITS | Patient Health Record ---
Author Organization [facility] Address [address] [place] [address] Care Team Providers Care Research Geologist Name Role Phone Merissa (RETIRED) Jose GOODWIN Primary Care Provide r Imtiaz Holland Unavailable [phone] Allergies Allergen (clinical drug ingredient) Drug/Non Drug [...] Problem History of adenomatous polyp of colon (848987288) History of adenomatous polyp of colon (Z86.010) Active confirmed Problem Abdominal bloating (051147681) Abdominal bloating (R14.0) Active confirmed Problem Change in bowel habit (41207450) Change in bowel habits (R19.4) Active confirmed Problem Screening for malignant neoplasm of rectum (771392242) Encounter for screening for malignant neoplasm of rectum (Z12.12) Active confirmed Problem 04910243 Preprocedural examination (Z01.818) Active confirmed Problem Gas (72296924) Gas (R14.3) Active confirmed Problem 667688626 Gastroesophageal reflux disease, esophagitis presence not specified (K21.9) Active confirmed Problem 783960795 History of colon cancer (Z85.038) Active confirmed Problem Left lower quadrant pain (293444458) Abdominal pain, acute, left lower quadrant (R10.32) [...] Insured Coverage Start Date Coverage End Date [facility] [address] [place], [place] [id number] ELLIOTT CHE Self - patient is the insured Medical (General) History Medical History History ICD Code Malignant colon polyp removed at 40 cm i n 04/2004 Colon polyps-tubular adenoma removed in 2006 as well during a surveillance colonoscopy Elevated cholesterol Denies NC,DM,CVA,Lung disease,renal dise ase EGD in 09/2009 with [...]
--- OUTSIDE RECORDS SUMMARY | 2025-05-04 08:56 | XMS_ITS | Clinical Summary ---
Author Organization [facility] Address [address] [place] [address] Phone Care Team Providers Care Beading Machine Operator Name Role Phone Jose Craven MD Primary Care Provider Allergies No known active allergies Medications simvastatin (ZOCOR) 20 MG tablet Take 1 tablet by mouth every morning. 5 Active valsartan (DIOVAN) 80 MG tablet Take 1 tablet by mouth every morning. 5 Active zolpidem (AMBIEN) 10 mg tablet Take 10 mg by mouth nightly at bedtime. 5 Active pantoprazole (PROTONIX) 40 MG tablet Take 1 tablet by mouth every morning. 5 Active ketoconazole (NIZORAL) 2 % shampoo PLEASE SEE ATTACHED FOR DETAILED DIRECTIONS Active albuterol 90 mcg/actuation inhaler Inhale 2 puffs into the lungs every 6 (six) hours as needed for wheezing. Active predniSONE (DELTASONE) 20 MG tablet Take 1 tablet (20 mg total) by mouth daily with breakfast. 5 tablet Active Active Problems No known active problems Immunizations No known immunizations Social History Tobacco Use Types Packs/Day Years Used Date Smoking Tobacco: Never Assessed Education Answer Date Recorded Are you interested in more education? Not on xavier e 01/16/2025 Are you concerned about learning? Not on file 01/16/2025 No 01/16/2025 No 01/16/2025 Digital Access Answer Date Recorded No 01/16/2025 No 01/16/2025 Reliable internet access at home? Not on file 01/16/2025 Device with a working camera? Not on file Sex and Gender Information Value Date Recorded Sex Assigned at Not on file Legal Sex Male 9:59 PM EDT Gender Identity Not on file Sexual Orientation Not on file Last Filed Vital Signs Vital Sign Reading Time Taken Comments Blood Pressure 159/91 01/16/2025 8:56 AM EDT Pulse 66 01/16/2025 8:56 AM EDT Temperature 36.7 C (98.1 F) 01/16/2025 8:56 AM EDT Respiratory Rate 16 01/16/2025 8:56 AM EDT Oxygen Saturation 97% 01/16/2025 8:56 AM EDT Inhaled Oxygen Concentration - - Weight 95.3 kg (210 lb) 01/16/2025 8:56 AM EDT Height 177.8 cm (5' 10 ) 01/16/2025 8:56 AM EDT Body Mass Index 30.13 01/16/2025 8:56 AM EDT Plan of Treatment Health Maintenance Due Date Last Done Comments Adult Td,Tdap Booster 1952 CREATININE LEVEL 1952 LIPID PANEL 1952 POTASSIUM LEVEL 1952 DEPRESSION SCREENING 1964 SMOKING Hx and SMOKELESS TOBACCO SCREENING 1965 HEPATITIS C SCREENING 1970 COLOGUARD 1997 COLONOSCOPY 1997 COLORECTAL CANCER SCREENING 1997 FIT TEST 1997 FOBT 1997 SIGMOIDOSCOPY 1997 VIRTUAL COLONOSCOPY 1997 PNEUMOCOCCAL VACCINES (50+ years) (1 of 1 - PCV) 2002 ZOSTER VACCINES (1 of 2) 2002 COVID-19 VACCINE ( season) 2024 08/29/2022, 01/01/2022, 06/17/2021, Additional history exists RSV VACCINE (1 - 1-dose 75+ series) 2027 HEPATITIS A VACCINES Aged Out No long er eligible based on patient's age to complete this topic HIB VACCINES Aged Out No longer eligi ble based on patient's age to complete this topic MENINGOCOCCAL VACCINES (ACWY) Aged Out No longer eligible based on patient's age to complete this topic MENINGOCOCCAL VACCINES (B) Aged Out N o longer eligible based on patient's age to complete this topic Medical Devices Not on file Insurance Care Teams Beading Machine Operator Relationship Specialty Start Date End Date Jose Craven MD [address] [place] [address] [place] [address] PCP - General 01/16/25 Additional Source Comments The information contained in this document represents components of the legal health record. It is not the complete legal health record.[facility]
[2025-05-04 11:31] LABS: MANUAL DIFF FLAG NO
[2025-05-04 11:38] LABS: Hematocrit 41.2 % (42.0-52.0); Hemoglobin 14.1 g/dl (14.0-18.0); Imm Gran Abs Auto 0.01 X10*3/uL (0.00-0.03); Imm Gran Pct Auto 0.2 % (0.0-0.4); Lymphocytes Absolute Auto 1.8 X10*3/uL (1.2-4.9); Mean Corpuscular HGB Conc 34.2 g/dl (31.0-36.0); Mean Corpuscular Hemoglobin 30.8 pg (27.0-33.0); Mean Corpuscular Volume 90.0 fL (80.0-98.0); NRBC Abs Auto 0.000 X10*3/uL (0.0-0.012); NRBC Pct Auto 0.0 /100WBC (0.0-0.2); Platelet Count 291 X10*3/uL (160-400); Red Blood Count 4.58 X10*6/uL (4.60-5.80); White Blood Count 6.1 X10*3/uL (4.8-10.8)
[2025-05-04 11:46] LABS: Alanine Aminotransferase 18 U/L (0-40); Albumin Level 3.9 g/dL (3.5-5.0); Alkaline Phosphatase 59 U/L (39-117); Anion Gap 10 (12-20); Aspartate Amino Transferase 29 U/L (5-37); Blood Urea Nitrogen 20 mg/dL (9-16); Calcium 9.1 mg/dL (8.4-10.2); Carbon Dioxide 30 mmol/L (22-29); Chloride 105 mmol/L (96-108); Cholesterol 156 mg/dL (<200); Estimated Glomerular Filt Rate > 60; HDL Cholesterol 50 mg/dL (>40); Potassium 4.3 mmol/L (3.3-5.1); Sodium 141 mmol/L (135-145); Total Protein 7.0 g/dL (6.5-8.0); Triglycerides 86 mg/dL (<150)
[2025-05-04 12:30] LABS: Prostate Specific Antigen < 0.10 ng/mL (<0.05-4.0)
== END 2025-05-04 08:43 | disposition home or self-care (01) ==
LOC: HO.WFDLDS 08:42
PROVIDERS: Visit Provider Internal Medicine
DX: Z12.5 Encounter for screening for malignant neoplasm of prostate (principal); I10 Essential (primary) hypertension; K21.9 Gastro-esophageal reflux disease without esophagitis; E78.00 Pure hypercholesterolemia, unspecified; Z85.46 Personal history of malignant neoplasm of prostate
CPT/HCPCS: 36415; 80053; 80061; 84153; 85025

== ENCOUNTER 2025-09-18 14:34 | Outpatient (AMB) | payer MEDICARE, SELFPAY ==
--- NOTE | 2025-09-18 14:47 | MHC.OFFVIS ---
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 Overall he is doing well. He said he maintains pretty active lifestyle and [place] and pushes himself and has no exertional chest pain or shortness of breath. He said intermittently gets cluster of palpitations with PVCs recorded on his EKGs sensor which happen without any clear triggers. He think it might be related to caffeine intake but not sure. Otherwise he takes all his medications. Denies any heart failure symptoms. Denies any lightheadedness, syncope. [facility] Medical History HTN (hypertension) Arthritis History of prostate cancer GERD (gastroesophageal reflux disease) Elevated cholesterol Surgical History Hx of left inguinal hernia repair History of esophagogastroduodenoscopy (EGD) H/O colonoscopy Hx of radical prostatectomy Family History Father CAD (coronary artery disease) Mother No problems noted. Social History Housing: House Are you a primary wound care specialist to a significant other at home: No Do you presently have visiting nurse or other home services: No Patient Tobacco Use Status: Never used Tobacco e-Cigarette/Vaping Use: Never Used service: No Current occupational status: retired Cognitive needs: No Hearing needs: No Vision needs: Yes (reading glasses) Review of Systems Const Denies chills, Denies fatigue, Denies fever(s), Denies frequent falls, Denies weakness, Denies weight gain and Denies weight loss ENT Denies dizziness Card Denies chest pain, Denies leg edema, Denies lightheadedness, Denies palpitations, Denies dyspnea, Denies dyspnea on exertion, Denies orthopnea and Denies other (loss of consciousness) Resp Denies cough, Denies dyspnea and Denies dyspnea on exertion GI Denies hematochezia and Denies change in stool character Musc Denies abnormal gait, Denies muscle weakness, Denies numbness, Denies radiating pain into limb and Denies tingling Neuro Denies Abnormal speech present, Denies abnormal gait, Denies dizziness, Denies frequent falls, Denies numbness, Denies tingling and Denies weakness Endo Denies fatigue and Denies palpitations Physical Exam Vital Signs: Last Vital Signs Pulse 70 09/18/25 14:48 BP 130/80 09/18/25 14:48 BMI result Body Mass Index 32.3 Const General: cooperative, comfortable, no acute distress, alert, awake and Physically active Nutritional Appearance: average body habitus and well nourished Orientation/consciousness: patient oriented x3 Limitations: no limitations Neck Neck: Yes trachea midline, Yes supple and Yes no JVD Resp Effort & Inspection: normal respiratory effort Auscultation: clear to auscultation bilaterally Cardio Jugular venous distension: no JVD Palpation: normal PMI Rate: regular rate Rhythm: regular rhythm Heart sounds: S1 normal heart sound present, S2 normal heart sound present, no click, no gallops and Murmur heart sound present systolic early Neuro General: patient oriented x3 and no focal motor deficits Speech: No Abnormal speech present Extrem General: Yes no clubbing, cyanosis or edema Office Procedures EKG Details: EKGs shows normal sinus rhythm with right bundle-branch block, unchanged [id number], Complete Assessment & Plan Assessment & Plan (1) PVCs (premature ventricular contractions): Code(s): I49.3 - Ventricular premature depolarization Category: Medical Plan: Isolated PVCs that happen without any clear triggers. He is not significantly symptomatic. At this point time avoid pharmacotherapy. Stress mitigation strategies was discussed. Avoidance of stimulants was discussed. (2) SVT (supraventricular tachycardia): Code(s): I47.1 - Supraventricular tachycardia Category: Medical Plan: SVT without any clinical recurrence. Patient will continue avoid stimulants. Stress mitigation strategies was discussed. Avoid therapy due to his prior history of bradycardia. (3) HTN (hypertension): Code(s): I10 - Essential (primary) hypertension Category: Medical Qualifiers: Hypertension type: primary hypertension Qualified Code(s): I10 - Essential (primary) hypertension Plan: Hypertension which is currently well optimized. Advised to monitor blood pressure at home maintain a log. Goal blood pressure less than 130/84 currently well optimized. Continue current therapy. Advised to maintain activity level as tolerated. Advised to call me with any new symptoms. Will follow up in the clinic in 1 year. Thank you for allowing me to partake in his care Coding Level of Care Code Est Pt Level 4 (75098) Diagnoses PVCs (premature ventricular contractions) I49.3 SVT (supraventricular tachycardia) I47.1 Primary hypertension I10 Hypertension type: primary hypertension CPT Codes EKG - CPT: 05009-[id number], Complete ([id number])
[2025-09-18 14:48] VITALS: BP 130/80; PULSE 70; BMI 32.3
--- OUTSIDE RECORDS SUMMARY | 2025-09-18 16:55 | XMS_ITS | Patient Health Record ---
Author Organization [facility] Address [address] [place] [id number] Care Team Providers Care [employer] Name Role Phone Merissa (RETIRED) Jose GOODWIN Primary Care Provide r Imtiaz Holland Unavailable [phone] Allergies Allergen (clinical drug ingredient) Drug/Non Drug Allergy documented on EMR Reaction Allergy Type Onset Date Status PredniSONE hives Drug Allergy Active Reason For Referral No Information Medications Medication SIG (Take, Route, Frequency, Duration) Notes Start Date End Date Status Readi-Cat 2 2 % Suspension 450 ml Orally Once; Duration: 1 days 11/06/2020 Active Ambien prn Active Baby Aspirin 81 MG Tablet Chewable 1 tablet Orally Once a day/ as needed Active Dicyclomine HCl 10 MG Capsule 1-2 Orally Q 6 hours prn abdominal bloating/discomfort/gas; Duration: 90 Active Pantoprazole Sodium 40 MG Tablet Delayed Release TAKE 1 TABLET BY MOUTH EVERY DAY; Duration: 90 Active Simvastatin Active Immunizations Vaccine Route Administration Date Status Comme nts Influenza Unknown 10/30/2020 Refused Social History Social History Additional Details Category Social Info Options Details Miscellaneous: Marital status: 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 alcohol Nonsmoker; no sig. alcohol Nonsmoker; no sig. alcohol Nonsmoker; no sig. alcohol Problems Problem Type SNOMED Code ICD Code Onset Dates Problem Status W/U Status Risk Notes Problem History of adenomatous polyp of colon (525369731) History of adenomatous polyp of colon (Z86.010) Active confirmed Problem Abdominal bloating (985965439) Abdominal bloating (R14.0) Active confirmed Problem Change in bowel habit (60611551) Change in bowel habits (R19.4) Active confirmed Problem Screening for malignant neoplasm of rectum (596059656) Encounter for screening for malignant neoplasm of rectum (Z12.12) Active confirmed Problem Preprocedural examination (764397801319041) Preprocedural examination (Z01.818) Active confirmed Problem Gas (06664209) Gas (R14.3) Active confirmed Problem Gastroesophageal reflux disease (118419768) Gastroesophageal reflux disease, esophagitis presence not specified (K21.9) Active confirmed Problem History of malignant neoplasm of colon (968456886) History of colon cancer (Z85.038) Active confirmed Problem Left lower quadrant pain (531478880) Abdominal pain, acute, left lower quadrant (R10.32) [...] Insured Coverage Start Date Coverage End Date [facility] [address] [place], [place] [id number] ELLIOTT CHE Self - patient is the insured Medical (General) History Medical History History ICD Code Malignant colon polyp removed at 40 cm i n 04/2004 Colon polyps-tubular adenoma removed in 2006 as well during a surveillance colonoscopy Elevated cholesterol Denies [place],DM,CVA,Lung disease,renal dise ase EGD in 09/2009 with [...]
--- OUTSIDE RECORDS SUMMARY | 2025-09-18 16:55 | XMS_ITS | Clinical Summary ---
Author Organization [facility] Address [address] [place] [address] Care Team Providers Care Printing Technician Name Role Phone Jose Craven Primary Care Provider Social History Tobacco Use Types Packs/Day Years Used Date Smoking Tobacco: Never Assessed Sex and Gender Information Value Date Recorded Sex Assigned at Not on file Legal Sex Male 4:54 AM EST Gender Identity Not on file Sexual Orientation Not on file Plan of Treatment Not on file Care Teams Printing Technician Relationship Specialty Start Date End Date Jose Craven [address] [place] [address] PCP - General 07/31/14
--- OUTSIDE RECORDS SUMMARY | 2025-09-18 16:55 | XMS_ITS | Clinical Summary ---
Author Organization [facility] Address [address] [place] [address] Phone Care Team Providers Care Novelty Twister Operator Name Role Phone Jose Craven MD [...] 2002 ZOSTER VACCINES (1 of 2) 2002 INFLUENZA VACCINE (#1) 2025 07/02/2018 COVID-19 VACCINE ( season) 2025 08/29/2022, 01/01/2022, 06/17/2021, Additional history exists RSV [...] Devices Not on file Insurance Care Teams Novelty Twister Operator Relationship Specialty Start Date End Date Jose Craven MD [address] [place] [address] [place] [address] PCP - General 01/16/25 Additional Source Comments The information contained in this document represents components of the legal health record. It is not the complete legal health record.[facility]
== END 2025-09-18 15:09 | disposition home or self-care (01) ==
LOC: HO.HCS 14:35
PROVIDERS: PCP Internal Medicine; Visit Provider Internal Medicine Cardiovascular Disease
DX: I49.3 Ventricular premature depolarization (principal); I47.10 Supraventricular tachycardia, unspecified; I10 Essential (primary) hypertension
CPT/HCPCS: 93010; 99214

== ENCOUNTER → 2025-09-18 14:34 | Outpatient (BNVA) | payer MEDICARE, SELFPAY | PROVIDERS: PCP Internal Medicine; Visit Provider Internal Medicine Cardiovascular Disease | DX: I49.3 Ventricular premature depolarization (principal); I47.10 Supraventricular tachycardia, unspecified; I10 Essential (primary) hypertension | CPT/HCPCS: 93005; 99212 ==